=== PATIENT | male | born 1970 | race Hispanic/Latino ===

== ENCOUNTER 2016-05-25 16:22 | Emergency (ER) | payer SELFPAY ==
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
[2016-05-25 18:00] LABS: Basophils % (Auto) 1.2 % (0.0-1.8); Eosinophils % (Auto) 4.2 % (0.0-4.3); Hematocrit 43.8 % (35.5-45.6); Hemoglobin 14.5 gm/dl (11.8-15.2); Mean Corpuscular HGB Conc 33 % (32-34); Mean Corpuscular Hemoglobin 32 pg (28-32); Mean Corpuscular Volume 96 fl (84-94); Platelet Count 219 K/mm3 (140-440); Red Blood Count 4.56 M/mm3 (3.65-5.03); Red Cell Distribution Width 13.9 % (13.2-15.2); White Blood Count 9.8 K/mm3 (4.5-11.0)
[2016-05-25 18:12] LABS: Anion Gap 14 mmol/L; BUN/Creatinine Ratio 15.55; Blood Urea Nitrogen 14 mg/dL (9-20); Calcium 8.9 mg/dL (8.4-10.2); Carbon Dioxide 28 mmol/L (22-30); Chloride 98.5 mmol/L (98-107); Creatine Kinase 152 units/L (55-170); Glucose 102 mg/dL (75-100); Potassium 4.7 mmol/L (3.6-5.0); Sodium 136 mmol/L (137-145)
[2016-05-25] MEDS ORDERED: MORPHINE IV ONE (20:07)
[2016-05-25] MEDS ORDERED: ZOFRAN IV ONE (20:07)
--- NOTE | 2016-05-25 20:15 | Emergency Department Report ---
HPI - General Chief Complaint: Back Pain/Injury Time Seen by Provider: 05/25/16 19:54 - HPI HPI: Room 18 The patient is a 46-year-old male presenting with a chief complaint of chest and head pain after blunt trauma. Patient states 05/22/2016 while working on a car junior slipped the car fell on him striking his head right chest. Patient states he went to [facility] where he had a head CT performed and a chest x-ray which were both reportedly negative. The patient states he was discharged home with Tylenol. Patient states the pain is persistent mostly in the right chest. Patient admits to occasional shortness of breath but denies fever, nausea or vomiting. The patient gives his pain a score of 11/10 Location: Head, chest Duration: Constant since 05/22/2016 Quality: Pain Severity: 10 Modifying factors: [see above] Context: [see above] Mode of transportation: [not driving] ED Past Medical Hx - Past Medical History Hx Hypertension: Yes Hx Arthritis: Yes (rt knee) Hx COPD: Yes (no home O2) - Surgical History Additional Surgical History: Right lower extremity vascular surgery - Family History Family history: no significant - Social History Smoking Status: Current Every Day Smoker (one pack per day) Substance Use Type: Alcohol (rarely), Marijuana - Medications Home Medications: Home Medications Medication Instructions Recorded Confirmed Last Taken Type Lisinopril [Zestril TAB] 20 mg PO DAILY 01/12/13 07/28/13 07/28/13 06:30 History Cyclobenzaprine [Flexeril] 10 mg PO TID PRN #20 tablet 05/25/16 Unknown Rx Ibuprofen [Motrin 800 MG tab] 800 mg PO Q8HR PRN #20 tablet 05/25/16 Unknown Rx oxyCODONE /ACETAMINOPHEN [Percocet 1 - 2 tab PO Q6HR PRN #30 tablet 05/25/16 Unknown Rx 5/325] ED Review of Systems ROS: Stated complaint: CAR FELL ON TOP OF HIM Other details as noted in HPI Comment: All other systems reviewed and negative Constitutional: denies: chills, fever Eyes: denies: eye pain, eye discharge, vision change ENT: denies: ear pain, throat pain Respiratory: shortness of breath. denies: cough, wheezing Cardiovascular: denies: palpitations Endocrine: no symptoms reported Gastrointestinal: denies: abdominal pain, nausea, diarrhea Genitourinary: denies: urgency, dysuria Musculoskeletal: arthralgia, myalgia Skin: other (facial abrasions). denies: rash, lesions Neurological: headache Psychiatric: denies: anxiety, depression Hematological/Lymphatic: denies: easy bleeding, easy bruising Physical Exam - Physical Exam Vital Signs: Vital Signs 05/25/16 05/25/16 16:43 19:45 Temperature 97.8 F 97.8 F Pulse Rate 78 68 Respiratory 20 18 Rate Blood Pressure 191/121 Blood Pressure 166/106 [Right] O2 Sat by Pulse 98 99 Oximetry Physical Exam: GENERAL: The patient is well-developed well-nourished male lying on stretcher appearing to be in mild discomfort. [] HEENT: Normocephalic. Abrasions to the left forehead. Extraocular motions are intact. Patient has moist mucous membranes. NECK: Supple. Trachea midline CHEST/LUNGS: Clear to auscultation. There is no respiratory distress noted. HEART/CARDIOVASCULAR: Regular. There is no tachycardia. There is no gallop rub or murmur. ABDOMEN: Abdomen is soft, nontender. Patient has normal bowel sounds. There is no abdominal distention. SKIN: There is no rash. There is no edema. There is no diaphoresis. NEURO: The patient is awake, alert, and oriented. The patient is cooperative. The patient has normal speech MUSCULOSKELETAL: There is no crepitus. There is no limitation range of motion. ED Course Vital Signs 05/25/16 05/25/16 16:43 19:45 Temperature 97.8 F 97.8 F Pulse Rate 78 68 Respiratory 20 18 Rate Blood Pressure 191/121 Blood Pressure 166/106 [Right] O2 Sat by Pulse 98 99 Oximetry - Consultations Consultation #1: 05/25/16 20:17 With physician from outside hospital ([place]) states patient received a CT head and CT facial bones which did not reveal any acute process as well as plain film chest x-ray which did not reveal any acute findings. Patient was discharged home with Tylenol No. 3 #20 ED Medical Decision Making - Lab Data Result diagrams: 05/25/16 17:37 05/25/16 17:37 Laboratory Tests 05/25/16 05/25/16 17:37 17:37 WBC 9.8 RBC 4.56 Hgb 14.5 Hct 43.8 MCV 96 H MCH 32 MCHC 33 RDW 13.9 Plt Count 219 Lymph % (Auto) 23.2 [place] % (Auto) 7.6 H Eos % (Auto) 4.2 Baso % (Auto) 1.2 Lymph # 2.3 [place] # 0.7 Eos # 0.4 Baso # 0.1 Seg Neutrophils % 63.8 Seg Neutrophils # 6.2 Sodium 136 L Potassium 4.7 Chloride 98.5 Carbon Dioxide 28 Anion Gap 14 BUN 14 Creatinine 0.9 Estimated GFR > 60 BUN/Creatinine Ratio 15.55 Glucose 102 H Calcium 8.9 Total Creatine Kinase 152 Troponin T < 0.010 - Radiology Data Radiology results: report reviewed (CT head, CT chest), image reviewed (chest x- ray, CT head, CT chest) interpreted by me: Chest x-ray-no focal infiltrates, no pneumothorax CT chest (read by radiologist) sees-no evidence for vascular abnormality. There is no evidence for aortic dissection, aortic tear or mediastinal hematoma. Acute fractures of the lateral right fourth through sixth ribs. Lungs demonstrate underlying emphysema but no evidence for pneumothorax or parenchymal contusion CT head (read by radiologist)-negative CT of the head. No acute intracranial process noted - Differential Diagnosis ICH, pneumothorax, rib fracture, mediastinal injury Critical care attestation.: If time is entered above; I have spent that time in minutes in the direct care of this critically ill patient, excluding procedure time. ED Disposition Clinical Impression: Multiple fractures of ribs, right side, sequela, Right-sided chest pain Disposition: DISCHARGED TO HOME OR SELFCARE Is pt being admited?: No Does the pt Need Aspirin: No Condition: Stable Instructions: Chest Pain (ED), Rib Fracture (ED), How to Use an Incentive Spirometer (ED) Additional Instructions: Return to the emergency department immediately should you develop worsening symptoms, fever, inability to tolerate food or liquid or any other concerns. Prescriptions: Cyclobenzaprine [Flexeril] 10 mg PO TID PRN #20 tablet PRN Reason: Muscle Spasm Ibuprofen [Motrin 800 MG tab] 800 mg PO Q8HR PRN #20 tablet PRN Reason: Pain oxyCODONE /ACETAMINOPHEN [Percocet 5/325] 1 - 2 tab PO Q6HR PRN #30 tablet PRN Reason: Pain Referrals: ERIC WORTHINGTON MD [Primary Care Provider] - 3-5 Days ZENON HELMS JR, MD [Staff Physician] - 3-5 Days (Dr. Helms is a primary physician. Please follow up with him if you do not already have a primary physician) ROYER PIZANO MD [Staff Physician] - 3-5 Days (Dr. Pizano is an orthopedic surgeon. Please follow up with him for further evaluation) Time of Disposition: 22:15
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
[2016-05-25] MEDS ORDERED: SUBLIMAZE IV ONE (22:09)
[2016-05-25 22:45] VITALS: BP 179/107
[2016-05-25] MEDS ORDERED: CATAPRES ONE (22:45)
[2016-05-25] MEDS ORDERED: CATAPRES PO ONE (22:46)
--- NOTE | 2016-05-26 07:37 | XRay Report ---
ROUTINE CHEST, TWO VIEWS: HISTORY: Chest pain, abnormal breath sounds. Mild hyperinflation is evident. The lungs are clear. Heart and mediastinal structures are unremarkable. No thoracic fractures are appreciated on x-ray. Mild facet spondylosis is noted. IMPRESSION: Mild hyperinflation. No acute process appreciated.
== END 2016-05-25 23:03 | disposition home or self-care (01) ==
LOC: ED 16:22
DX: S22.41XS Multiple fractures of ribs, right side, sequela (principal); I10 Essential (primary) hypertension; J44.9 Chronic obstructive pulmonary disease, unspecified; W20.8XXS Other cause of strike by thrown, projected or falling object, sequela
CPT/HCPCS: 36415; 70450; 71020; 71275; 80048; 82550; 84484; 85025; 93005; 93010; 96374; 96375; 99284; J2270; J2405; J3010; Q9967

== ENCOUNTER 2016-07-10 11:47 | Inpatient (IN) | payer OTHER ==
[2016-07-10 13:32] LABS: Basophils % (Auto) 0.9 % (0.0-1.8); Eosinophils % (Auto) 2.2 % (0.0-4.3); Hematocrit 31.7 % (35.5-45.6); Hemoglobin 10.5 gm/dl (11.8-15.2); Mean Corpuscular HGB Conc 33 % (32-34); Mean Corpuscular Hemoglobin 31 pg (28-32); Mean Corpuscular Volume 93 fl (84-94); Platelet Count 578 K/mm3 (140-440); Red Blood Count 3.43 M/mm3 (3.65-5.03); Red Cell Distribution Width 13.6 % (13.2-15.2); White Blood Count 14.1 K/mm3 (4.5-11.0)
[2016-07-10 13:42] LABS: INR 3.08 (0.87-1.13)
[2016-07-10 13:45] LABS: Albumin/Globulin Ratio 0.8 %; BUN/Creatinine Ratio 24.7; Bilirubin,Total 0.3 mg/dL (0.1-1.2); Calcium 8.7 mg/dL (8.4-10.2); Chloride 94.2 mmol/L (98-107); Potassium 4.6 mmol/L (3.6-5.0); Total Protein 6.6 g/dL (6.3-8.2)
[2016-07-10] MEDS ORDERED: NACL 0.9% 1000 ML 1,000 ML IV ONE (19:11)
--- NOTE | 2016-07-10 19:22 | Emergency Department Report ---
HPI - General Chief Complaint: Wound/Laceration Time Seen by Provider: 07/10/16 18:37 - HPI HPI: This is a 46-year-old male presents to the emergency department with complaint of increased pain and swelling to the right lower extremity. The patient was recently at [facility], admitted for 13 days, after he had a large right lower extremity DVT with ischemia, compartment syndrome and eventually a fasciotomy. The patient has a wound VAC on but the VAC has stopped working since this morning. The patient was supposed to go to the wound Center clinic this morning but was told to come to the emergency department instead. He has seen Dr. Calzada and Dr. Muhammad from vascular surgery. He has always had some intermittent swelling and blistering but this has increased. Patient is on gabapentin and hydrocodone and it is not controlling his pain. They deny any fever, nausea, vomiting, chest pain or shortness of breath. ED Past Medical Hx - Past Medical History Hx Hypertension: Yes Hx Congestive Heart Failure: No Hx Diabetes: No Hx Renal Disease: Yes (renal insuf) Hx Arthritis: Yes (rt knee) Hx Kidney Stones: Yes Hx Asthma: No Hx COPD: Yes (no home O2) Hx HIV: No Additional medical history: PAD. sleep apnea - Surgical History Additional Surgical History: Right lower extremity vascular surgery 2013 stents , 06/27/2016 RLL narcotic tissue with with current wound vac - Social History Smoking Status: Former Smoker Substance Use Type: Marijuana - Medications Home Medications: Home Medications Medication Instructions Recorded Confirmed Last Taken Type Cyclobenzaprine [Flexeril 10 MG 10 mg PO TID PRN #30 tablet 07/08/16 07/10/16 Unknown Rx TAB] Gabapentin [Neurontin] 300 mg PO Q8HR #90 capsule 07/08/16 07/10/16 Unknown Rx HYDROcodone/APAP 5-325 [[place] 2 each PO Q4H PRN #20 tablet 07/08/16 07/10/16 Unknown Rx 5-325 mg TAB] Lisinopril [Zestril TAB] 20 mg PO DAILY #30 tablet 07/08/16 07/10/16 Unknown Rx Nicotine [Habitrol] 21 mg TD QDAY #7 patch 07/08/16 07/10/16 Unknown Rx Rivaroxaban [Xarelto] 15 mg PO BID #30 tablet 07/08/16 07/10/16 Unknown Rx amLODIPine [Norvasc] 5 mg PO DAILY #30 tablet 07/08/16 07/10/16 Unknown Rx cloNIDine [Catapres] 0.2 mg PO Q12H #60 tablet 07/08/16 07/10/16 Unknown Rx ED Review of Systems ROS: Stated complaint: PRE SURGERY/ RT LEG SWELLING Other details as noted in HPI Comment: All other systems reviewed and negative Constitutional: denies: chills, fever Eyes: denies: eye pain, eye discharge, vision change ENT: denies: ear pain, throat pain Respiratory: denies: cough, shortness of breath, wheezing Cardiovascular: edema. denies: chest pain, palpitations Gastrointestinal: denies: abdominal pain, nausea, diarrhea Genitourinary: denies: urgency, dysuria Musculoskeletal: arthralgia, myalgia Skin: lesions. denies: pruritus Neurological: denies: headache, weakness, paresthesias Physical Exam - Physical Exam Vital Signs: Vital Signs 07/10/16 12:16 Temperature 98.3 F Pulse Rate 112 H Respiratory 16 Rate Blood Pressure 93/61 O2 Sat by Pulse 97 Oximetry Physical Exam: GENERAL: The patient is well-developed well-nourished. HEENT: Normocephalic. Atraumatic. Extraocular motions are intact. Patient has moist mucous membranes. Pupils equal reactive to light bilaterally. NECK: Supple. Trachea is midline. CHEST/LUNGS: Clear to auscultation. There is no respiratory distress noted. HEART/CARDIOVASCULAR: Regular. There is no tachycardia. There is no gallop rub or murmur. ABDOMEN: Abdomen is soft, nontender. Patient has normal bowel sounds. There is no abdominal distention. SKIN: Nonpitting swelling to the right lower extremity from the ankle and foot. There are some blisters seen to the dorsum, medial side and to the plantar ball of the foot. There are too long wounds to the right lower extremity, to both the medial and lateral portion of the tib-fib region consistent with his previous fasciotomy. There is a wound VAC covering these areas. NEURO: The patient is awake, alert, and oriented. The patient is cooperative. The patient has normal speech. MUSCULOSKELETAL: There is tenderness to palpation to the right lower extremity over the tib-fib region where the patient has fasciotomy wounds as well as tenderness palpation to the right foot which is currently swollen. It is hard to palpate the pedal pulses secondary to swelling. Cap refill less than 3 seconds. ED Course Vital Signs 07/10/16 12:16 Temperature 98.3 F Pulse Rate 112 H Respiratory 16 Rate Blood Pressure 93/61 O2 Sat by Pulse 97 Oximetry - Consultations Consultation #1: I spoke with Dr. Sotelo regarding this patient's previous visits and his presentation tonight. He did not feel that there was any immediate vascular intervention necessary in the emergency department. He has agreed for the vascular service to consult on this patient and suggests wound care consultation as well. 07/11/16 01:15 ED Medical Decision Making - Lab Data Result diagrams: 07/10/16 13:07 07/10/16 13:07 - Medical Decision Making This is a 46-year-old male who was previously here for an arterial occlusion, stent placement and compartment syndrome with subsequent fasciotomy. Patient comes in today because he has increased leg pain and swelling and the wound VAC has stopped working. Family says that they called the vascular service and were told to come in to the emergency department. Patient's labs show a leukocytosis, elevated INR and some acidosis on venous pH. Patient is groggy but arousable and alert. He has 2 large open wounds to the right lower extremity. There is nonpitting swelling to the foot and ankle with some blistering seen. From these reasons I believe the patient should be admitted and be reevaluated by the wound care service and the vascular service. He also will be given pain control. Blood cultures have been sent and the patient was covered with 1 g of vancomycin. Patient except for admission by the hospitalist. Critical Care Time: No Critical care attestation.: If time is entered above; I have spent that time in minutes in the direct care of this critically ill patient, excluding procedure time. ED Disposition Clinical Impression: Post-op pain, Encounter for management of vacuum-assisted closure (VAC) of wound, Right leg pain, Right leg swelling Open wound of leg Qualifiers: Encounter type: subsequent encounter Laterality: right Qualified Code(s): S81.801D - Unspecified open wound, right lower leg, subsequent encounter Disposition: OP ADMITTED IP TO THIS HOSP Is pt being admited?: Yes Condition: Stable Time of Disposition: 00:05
[2016-07-10] MEDS ORDERED: VANCOMYCIN/NS 1 GM/250 ML 1 GM/250 ML BAG IV ONE (21:23)
[2016-07-10] MEDS ORDERED: NORCO 5/325 PO PRN (22:31)
[2016-07-10] MEDS ORDERED: ZOFRAN IV PRN (22:33)
[2016-07-10] MEDS ORDERED: DULCOLAX PR PRN (22:33)
[2016-07-10] MEDS ORDERED: TYLENOL PO PRN (22:33)
[2016-07-10] MEDS ORDERED: MILK OF MAGNESIA PO PRN (22:33)
[2016-07-10] MEDS ORDERED: APRESOLINE IV PRN (22:33)
--- NOTE | 2016-07-10 22:39 | History and Physical Report ---
History of Present Illness Date of examination: 07/10/16 History of present illness: 46-year-old man with a history of peripheral vascular disease, hypertension, COPD, sleep apnea was discharged from the hospital 2 days ago return to the emergency room because state that his pain is uncontrolled, he is also hallucinating. She stated that she is not is streaks of redness distal to the bandage on the right leg, no fever or chills. Review of system is unobtainable from the patient, he is lethargic Patient was admitted and discharged 2 days ago for ischemia of the right leg where he underwent fasciotomy after developing compartment syndrome. He is also status post right profunda artery thrombectomy PAST SURGICAL HISTORY: As discussed above SOCIAL HISTORY: Smoke, no alcohol or drugs FAMILY HISTORY: Hypertension Medications and Allergies Allergies Allergy/AdvReac Type Severity Reaction Status Date / Time No Known Allergies Allergy Unverified 01/12/13 12:24 Home Medications Medication Instructions Recorded Confirmed Last Taken Type Cyclobenzaprine [Flexeril 10 MG 10 mg PO TID PRN #30 tablet 07/08/16 07/10/16 Unknown Rx TAB] Gabapentin [Neurontin] 300 mg PO Q8HR #90 capsule 07/08/16 07/10/16 Unknown Rx HYDROcodone/APAP 5-325 [[place] 2 each PO Q4H PRN #20 tablet 07/08/16 07/10/16 Unknown Rx 5-325 mg TAB] Lisinopril [Zestril TAB] 20 mg PO DAILY #30 tablet 07/08/16 07/10/16 Unknown Rx Nicotine [Habitrol] 21 mg TD QDAY #7 patch 07/08/16 07/10/16 Unknown Rx Rivaroxaban [Xarelto] 15 mg PO BID #30 tablet 07/08/16 07/10/16 Unknown Rx amLODIPine [Norvasc] 5 mg PO DAILY #30 tablet 07/08/16 07/10/16 Unknown Rx cloNIDine [Catapres] 0.2 mg PO Q12H #60 tablet 07/08/16 07/10/16 Unknown Rx Cephalexin [Keflex] 500 mg PO Q12HR #10 cap 07/14/16 Unknown Rx oxyCODONE /ACETAMINOPHEN [Percocet 1 tab PO Q6H PRN #30 tablet 07/14/16 Unknown Rx 5/325 mg] Active Meds: Active Medications Acetaminophen/Hydrocodone Bitart ([place] 5/325) 2 each PO Q4H PRN PRN Reason: Pain, Moderate (4-6) Amlodipine Besylate (Norvasc) 5 mg PO DAILY DAGMAR Clonidine HCl (Catapres) 0.2 mg PO Q12HR DAGMAR Hydralazine HCl (Apresoline) 5 mg IV Q6HR PRN PRN Reason: Hypertension Vancomycin HCl (Vancomycin/Ns 1 Gm/250 Ml) 1 gm in 250 mls @ 167.007 mls/hr IV ONCE ONE PRN Reason: Protocol Stop: 07/10/16 22:52 Lisinopril (Zestril) 20 mg PO DAILY DAGMAR Nicotine (Habitrol) 21 mg TD QDAY DAGMAR Exam - Physical Exam Narrative exam: Gen. appearance: Patient lying in bed, no apparent distress HEENT: Normocephalic, atraumatic, pupils equally round and reactive to light, extraocular movement intact, and no sclericterus,. No JVD or thyromegaly or nodule,neck supple, no carotid bruit ,mucous membranes moist, no exudate or erythema Heart: S1, S2, regular rate and rhythm Lungs: Clear to auscultation bilaterally, breathing comfortable Abdomen: Positive bowel sounds, nontender, nondistended, no organomegaly Extremity: Right leg bandage and in wound VAC, mild erythema of distal leg, swollen,+ pulses, no cyanosis, clubbing Skin: No rash, nodules, warm, dry Neuro: lethargic but arousable - Constitutional Vitals: Temp Pulse Resp BP Pulse Ox 98.3 F 104 H 17 115/75 97 07/10/16 19:15 07/10/16 22:00 07/10/16 22:00 07/10/16 22:00 07/10/16 22:00 Results - Labs CBC & Chem 7: 07/12/16 08:54 07/13/16 05:36 Labs: Abnormal lab results 07/10/16 07/10/16 07/10/16 Range/Units 13:07 13:07 13:07 WBC 14.1 H (4.5-11.0) K/mm3 RBC 3.43 L (3.65-5.03) M/mm3 Hgb 10.5 L (11.8-15.2) gm/dl Hct 31.7 L (35.5-45.6) % Plt Count 578 H (140-440) K/mm3 [place] % (Auto) 8.8 H (0.0-7.3) % [place] # 1.2 H (0.0-0.8) K/mm3 Seg Neutrophils % 70.4 H (40.0-70.0) % Seg Neutrophils # 9.9 H (1.8-7.7) K/mm3 PT 32.0 H (12.2-14.9) Sec. INR 3.08 H (0.87-1.13) VBG pH (7.320-7.420) Sodium 133 L (137-145) mmol/L Chloride 94.2 L (98-107) mmol/L BUN 42 H (9-20) mg/dL Creatinine 1.7 H (0.8-1.5) mg/dL Glucose 140 H (75-100) mg/dL Albumin 3.0 L (3.9-5) g/dL 07/10/16 Range/Units 13:07 WBC (4.5-11.0) K/mm3 RBC (3.65-5.03) M/mm3 Hgb (11.8-15.2) gm/dl Hct (35.5-45.6) % Plt Count (140-440) K/mm3 [place] % (Auto) (0.0-7.3) % [place] # (0.0-0.8) K/mm3 Seg Neutrophils % (40.0-70.0) % Seg Neutrophils # (1.8-7.7) K/mm3 PT (12.2-14.9) Sec. INR (0.87-1.13) VBG pH 7.314 L (7.320-7.420) Sodium (137-145) mmol/L Chloride (98-107) mmol/L BUN (9-20) mg/dL Creatinine (0.8-1.5) mg/dL Glucose (75-100) mg/dL Albumin (3.9-5) g/dL Assessment and Plan Acute renal failure Possible wound infection Peripheral vascular disease Recent fasciotomy for right leg ischemia Elevated INR Hypertension Sleep apnea Admits medicine Start IV fluid, IV vancomycin Obtain blood culture, repeat PT/INR Consult vascular Continue appropriate outpatient medication
[2016-07-10] MEDS ORDERED: VANCOMYCIN/NS 1 GM/250 ML 0 GM/0 ML BAG IV ONE (22:51)
[2016-07-10] MEDS ORDERED: VANCOMYCIN/NS 1 GM/250 ML 1 GM/250 ML BAG IV SCH (23:00)
[2016-07-10] MEDS ORDERED: VANCOMYCIN VIAL 2,000 MG in NACL 0.9% 500 ML 500 ML IV ONE (23:00)
[2016-07-11] MEDS: NACL 0.9% 1000 ML 1,000 ML IV SCH ×3 (00:28→21:49)
[2016-07-11] MEDS: CATAPRES PO SCH ×3 (00:29→21:45)
[2016-07-11 00:36] LABS: INR 2.21 (0.87-1.13)
[2016-07-11 00:37] LABS: Partial Thromboplastin Time 53.3 Sec. (24.2-36.6)
[2016-07-11 03:29] LABS: Basophils % (Auto) 0.7 % (0.0-1.8); Eosinophils % (Auto) 1.8 % (0.0-4.3); Hematocrit 28.8 % (35.5-45.6); Hemoglobin 9.5 gm/dl (11.8-15.2); Mean Corpuscular HGB Conc 33 % (32-34); Mean Corpuscular Hemoglobin 30 pg (28-32); Mean Corpuscular Volume 93 fl (84-94); Platelet Count 480 K/mm3 (140-440); Red Blood Count 3.11 M/mm3 (3.65-5.03)
[2016-07-11 03:39] LABS: Anion Gap 16 mmol/L; BUN/Creatinine Ratio 33.63; Blood Urea Nitrogen 37 mg/dL (9-20); Calcium 8.2 mg/dL (8.4-10.2); Carbon Dioxide 23 mmol/L (22-30); Chloride 96.1 mmol/L (98-107); Glucose 106 mg/dL (75-100); Potassium 4.5 mmol/L (3.6-5.0); Sodium 131 mmol/L (137-145)
[2016-07-11] MEDS ORDERED: OxyCONTIN PO ONE (06:24)
[2016-07-11] MEDS: OxyCONTIN PO SCH ×2 (06:31→21:47)
--- NOTE | 2016-07-11 08:15 | Admit Criteria Form ---
Admission Criteria Documentation: WOUND COMPLICATIONS Clinical Indications for Inpatient Care (Place 'X' for any and all applicable criteria): Ongoing inpatient care may be indicated for wound complications with ANY ONE of the following (1) (15): [ ]I. Infection with ANY ONE of the following(32)(33): [ ]a) Temperature greater than 38.5 C (101.3 F) [ ]b) Evidence of tissue necrosis [ ]c) Erythema diameter expanding around wound despite treatment [ ]d) Mental status changes [ ]e) Dehydration [ ]f) Bacteremia [ ]g) Hemodynamic instability [ ]h) Suspected necrotizing fasciitis [ ]i) Rapidly spreading lesions [ ]j) High-risk location (eg, perineum, sternum, orbit) [ ]k) High-risk coexisting clinical condition as indicated by ANY ONE of the following: [ ]i) Poorly controlled diabetes [ ]ii) Cirrhosis [ ]iii) Renal failure [ ]iv) Neutropenia [ ] v) Asplenia [ ]vi) Immunosuppression (eg, AIDS, chronic corticosteroid use) [ ]viii) Other high-risk medical comorbidities [ ] II. Dehiscence requiring frequent monitoring or immediate treatment [ ] III. Hematoma with ANY ONE of the following: [ ]a) Hemodynamic instability or acute anemia due to rapid development of hematoma [ ]b) Neck hematoma causing airway compression [ ]c) Retroperitoneal hematoma [ ]d) Uncontrolled coagulopathy [ ]IV. Seroma with evidence of secondary infection and requirement for IV antibiotics [D](31) [ X]V. Pain that cannot be managed at lower level of care Extended stay beyond goal length of stay for primary condition may be needed until ALL of the following are present(1)(33)(34): [ ]a) Afebrile or fever resolving [ ]b) Hemodynamic stability [ ]c) Pain resolving [ ]d) Wound closed, continuity adequately restored, or wound manageable at lower level of care [ ]e) No drain needed or drain care manageable at lower level of care [ ]f) Wound hematoma or seroma resolving [ ]g) Antibiotics not needed or regimen manageable at lower level of care(38) [ ]h) Dressing care manageable at lower level of care [ ]i) Coagulopathy absent, resolved, or treatable at lower level of care [ ]j) Medical comorbidities resolved or treatable at lower level of care The original [facility] [employer] content created by Millimawillis Guerre[employer] has been revised. The portions of the content which have been revised are identified through the use of italic text or in bold, and Ganesh Guerrero has neither reviewed nor approved the modified material. All other unmodified content is copyright [facility]. Please see references footnoted in the original [facility] [employer] edition 2016 Admission Criteria Met: Yes
[2016-07-11] MEDS: ZESTRIL PO SCH (11:00)
[2016-07-11] MEDS: HABITROL TD SCH (11:00)
[2016-07-11] MEDS: NORVASC PO SCH (11:00)
[2016-07-11] MEDS: PERCOCET 5/325 PO PRN (13:13)
[2016-07-11] MEDS: VANCOMYCIN VIAL 1,500 MG in NACL 0.9% 500 ML 500 ML IV SCH (13:17)
[2016-07-11] MEDS ORDERED: NACL 0.9% IR PRN (15:45)
[2016-07-11] MEDS ORDERED: ASTRAMORPH PF IV ONE (15:53)
[2016-07-11] MEDS ORDERED: MORPHINE IV ONE (16:00)
--- NOTE | 2016-07-11 16:06 | Progress Note ---
Assessment and Plan Assessment and plan: Acute renal failure, resolved Possible wound infection Peripheral vascular disease Recent fasciotomy for right leg ischemia Hypertension, benign Sleep apnea Plan: cont IV fluid, IV vancomycin follow blood culture, repeat PT/INR Consulted vascular, will follow recommendation Continue appropriate outpatient medication place on dvt px History Interval history: Patient seen and examined. Medical records and medication list reviewed. No acute event overnight noted by the RN. Patient denies any chest pain or difficulty breathing. Patient is tolerating diet. c/o rt LE pain. Pt is s/p a percutaneous revascularization during his recent hospitalization. He subsequently developed a compartment syndrome and required a fasciotomy. Wound vacs were placed and the pt was d/c home. His wound vac apparently malfunctioned yesterday and the device was removed, but the sponges were left in placed. Hospitalist Physical - Physical exam Narrative exam: GENERAL: well-developed and well-nourished WM lying on bed appeared to be in no discomfort. HEENT: Normocephalic. Atraumatic. No conjunctival congestion or icterus. Patient has moist mucous membranes. NECK: Supple. Trachea midline. CHEST/LUNGS: Clear to auscultated bilaterally, breathing nonlabored. No wheezes crackles or rhonchi. HEART/CARDIOVASCULAR: Regular in rate and rhythm. S1 and S2 positive. ABDOMEN: Abdomen is soft, nontender. Patient has normal bowel sounds. SKIN: There is no rash. Warm and dry. NEURO: No focal motor deficit. Follows command. EXTRIMITY: Right lower extremity covered with wound dressing. PSYCH: Cooperative. - Constitutional Vitals: Temp Pulse Resp BP Pulse Ox 98.5 F 99 H 30 H 138/78 79 L 07/11/16 12:00 07/11/16 13:00 07/11/16 13:00 07/11/16 13:00 07/11/16 13:00 Results - Labs CBC & Chem 7: 07/11/16 03:04 07/11/16 03:04 Labs: Laboratory Last Values WBC 13.0 K/mm3 (4.5-11.0) H 07/11/16 03:04 RBC 3.11 M/mm3 (3.65-5.03) L 07/11/16 03:04 Hgb 9.5 gm/dl (11.8-15.2) L 07/11/16 03:04 Hct 28.8 % (35.5-45.6) L 07/11/16 03:04 MCV 93 fl (84-94) 07/11/16 03:04 MCH 30 pg (28-32) 07/11/16 03:04 MCHC 33 % (32-34) 07/11/16 03:04 RDW 14.0 % (13.2-15.2) 07/11/16 03:04 Plt Count 480 K/mm3 (140-440) H 07/11/16 03:04 Lymph % (Auto) 18.0 % (13.4-35.0) 07/11/16 03:04 [place] % (Auto) 8.7 % (0.0-7.3) H 07/11/16 03:04 Eos % (Auto) 1.8 % (0.0-4.3) 07/11/16 03:04 Baso % (Auto) 0.7 % (0.0-1.8) 07/11/16 03:04 Lymph # 2.3 K/mm3 (1.2-5.4) 07/11/16 03:04 [place] # 1.1 K/mm3 (0.0-0.8) H 07/11/16 03:04 Eos # 0.2 K/mm3 (0.0-0.4) 07/11/16 03:04 Baso # 0.1 K/mm3 (0.0-0.1) 07/11/16 03:04 Seg Neutrophils % 70.8 % (40.0-70.0) H 07/11/16 03:04 Seg Neutrophils # 9.2 K/mm3 (1.8-7.7) H 07/11/16 03:04 PT 24.6 Sec. (12.2-14.9) H 07/11/16 00:15 INR 2.21 (0.87-1.13) H 07/11/16 00:15 APTT 53.3 Sec. (24.2-36.6) H 07/11/16 00:15 VBG pH 7.314 (7.320-7.420) L 07/10/16 13:07 Sodium 131 mmol/L (137-145) L 07/11/16 03:04 Potassium 4.5 mmol/L (3.6-5.0) 07/11/16 03:04 Chloride 96.1 mmol/L (98-107) L 07/11/16 03:04 Carbon Dioxide 23 mmol/L (22-30) 07/11/16 03:04 Anion Gap 16 mmol/L 07/11/16 03:04 BUN 37 mg/dL (9-20) H 07/11/16 03:04 Creatinine 1.1 mg/dL (0.8-1.5) 07/11/16 03:04 Estimated GFR > 60 ml/min 07/11/16 03:04 BUN/Creatinine Ratio 33.63 % 07/11/16 03:04 Glucose 106 mg/dL (75-100) H 07/11/16 03:04 Lactic Acid 1.3 mmol/L (0.7-2.0) 07/10/16 16:51 Calcium 8.2 mg/dL (8.4-10.2) L 07/11/16 03:04 Total Bilirubin 0.3 mg/dL (0.1-1.2) 07/10/16 13:07 AST 35 units/L (5-40) 07/10/16 13:07 ALT 50 units/L (7-56) 07/10/16 13:07 Alkaline Phosphatase 104 units/L (35-129) 07/10/16 13:07 Total Protein 6.6 g/dL (6.3-8.2) 07/10/16 13:07 Albumin 3.0 g/dL (3.9-5) L 07/10/16 13:07 Albumin/Globulin Ratio 0.8 % 07/10/16 13:07
[2016-07-11] MEDS ORDERED: PERCOCET 5/325 PO ONE (16:36)
--- NOTE | 2016-07-11 17:07 | Event Note ---
Date: 07/11/16 Pt is s/p a percutaneous revascularization with his recent hospitalization. He subsequently developed a compartment syndrome and was taken for a fasciotomy. Wound vacs were placed and the pt was d/c home. He developed uncontrolled pain while at home. He presented to the emergency room with ARF and has since been admitted to the ICU. His foot is warm and appears adequately perfused. His wound vac apparently malfunctioned yesterday and the device was removed, but the sponges were left in placed. I educated the nurse about sop with regards to malfunctioning wounds. I contacted the ET nurse who has changed his bandages. This patient did not do well with d/c home. Would recommend rehab eval.
[2016-07-12] MEDS: VANCOMYCIN VIAL 1,500 MG in NACL 0.9% 500 ML 500 ML IV SCH ×3 (00:51→22:53)
[2016-07-12] MEDS: PERCOCET 5/325 PO PRN ×5 (00:52→16:48)
[2016-07-12] MEDS: NACL 0.9% 1000 ML 1,000 ML IV SCH ×2 (06:48→15:23)
[2016-07-12 09:46] LABS: Basophils % (Auto) 0.8 % (0.0-1.8); Eosinophils % (Auto) 2.4 % (0.0-4.3); Hematocrit 29.1 % (35.5-45.6); Hemoglobin 9.7 gm/dl (11.8-15.2); Mean Corpuscular HGB Conc 33 % (32-34); Mean Corpuscular Hemoglobin 31 pg (28-32); Mean Corpuscular Volume 92 fl (84-94); Platelet Count 457 K/mm3 (140-440); Red Blood Count 3.17 M/mm3 (3.65-5.03); Red Cell Distribution Width 13.7 % (13.2-15.2); White Blood Count 8.4 K/mm3 (4.5-11.0)
[2016-07-12] MEDS: OxyCONTIN PO SCH ×2 (10:00→21:38)
[2016-07-12] MEDS: HABITROL TD SCH (10:17)
[2016-07-12] MEDS: ZESTRIL PO SCH (10:18)
[2016-07-12] MEDS: NORVASC PO SCH (10:18)
[2016-07-12] MEDS: CATAPRES PO SCH ×2 (10:19→21:39)
--- NOTE | 2016-07-12 11:14 | Progress Note ---
Assessment and Plan He was discharged on sterile fashion however it was not restarted in the hospital this admission. I restarted and anticoagulation for this patient. Plan to continue pain control, continue anticoagulation. Out of bed to chair as tolerated. Discharge planning to rehabilitation facility. Subjective Date of service: 07/12/16 Principal diagnosis: right leg pain status post fasciotomy and lysis Interval history: Plan 46-year-old gentleman was recently discharged from [facility] after right leg femoral lysis and fasciotomy. He came in for uncontrolled right leg pain and acute renal failure. He is now was normal creatinine and pain controlled with pain medications. No new concerns or issues. Objective - Constitutional Vitals: Vital Signs - 12hr 07/11/16 07/11/16 07/11/16 23:10 23:15 23:20 Temperature 98.1 F Pulse Rate 93 H 93 H Respiratory 15 18 Rate Blood Pressure 135/73 135/73 O2 Sat by Pulse 96 96 Oximetry 07/11/16 07/11/16 07/11/16 23:30 23:40 23:42 Temperature Pulse Rate 89 89 91 H Respiratory 16 16 18 Rate Blood Pressure 135/73 135/73 135/73 O2 Sat by Pulse 95 96 96 Oximetry 07/11/16 07/12/16 07/12/16 23:50 00:00 00:10 Temperature Pulse Rate 89 87 84 Respiratory 17 18 17 Rate Blood Pressure 135/73 135/73 131/68 O2 Sat by Pulse 96 100 96 Oximetry 07/12/16 07/12/16 07/12/16 00:20 00:30 00:40 Temperature Pulse Rate 87 94 H 86 Respiratory 13 12 17 Rate Blood Pressure 131/68 131/68 131/68 O2 Sat by Pulse 96 97 96 Oximetry 07/12/16 07/12/16 07/12/16 00:50 00:52 01:00 Temperature Pulse Rate 89 89 Respiratory 19 18 17 Rate Blood Pressure 131/68 131/68 O2 Sat by Pulse 96 96 Oximetry 07/12/16 07/12/16 07/12/16 01:10 01:20 01:30 Temperature Pulse Rate 94 H 91 H 87 Respiratory 16 17 17 Rate Blood Pressure 131/68 131/68 131/68 O2 Sat by Pulse 96 96 97 Oximetry 07/12/16 07/12/16 07/12/16 01:40 01:50 01:52 Temperature Pulse Rate 86 85 Respiratory 17 16 18 Rate Blood Pressure 131/68 131/68 O2 Sat by Pulse 95 96 Oximetry 07/12/16 07/12/16 07/12/16 02:00 02:05 02:10 Temperature Pulse Rate 86 81 81 Respiratory 15 15 Rate Blood Pressure 131/68 131/68 O2 Sat by Pulse 96 100 97 Oximetry 07/12/16 07/12/16 07/12/16 02:20 02:30 02:40 Temperature Pulse Rate 84 82 81 Respiratory 15 15 14 Rate Blood Pressure 131/68 131/68 131/68 O2 Sat by Pulse 96 97 97 Oximetry 07/12/16 07/12/16 07/12/16 02:50 03:00 03:10 Temperature Pulse Rate 79 78 79 Respiratory 12 14 15 Rate Blood Pressure 131/68 131/68 131/68 O2 Sat by Pulse 96 97 96 Oximetry 07/12/16 07/12/16 07/12/16 03:20 03:30 03:40 Temperature Pulse Rate 86 76 80 Respiratory 11 L 12 15 Rate Blood Pressure 131/68 131/68 131/68 O2 Sat by Pulse 97 96 97 Oximetry 07/12/16 07/12/16 07/12/16 03:50 04:00 04:10 Temperature Pulse Rate 79 83 82 Respiratory 17 16 17 Rate Blood Pressure 131/68 131/68 125/78 O2 Sat by Pulse 97 98 97 Oximetry 07/12/16 07/12/16 07/12/16 04:20 04:23 04:30 Temperature 98.2 F Pulse Rate 81 82 Respiratory 19 16 19 Rate Blood Pressure 125/78 125/78 O2 Sat by Pulse 97 97 Oximetry 07/12/16 07/12/16 07/12/16 04:40 04:50 05:00 Temperature Pulse Rate 82 77 77 Respiratory 16 16 15 Rate Blood Pressure 125/78 125/78 125/78 O2 Sat by Pulse 97 96 96 Oximetry 07/12/16 07/12/16 07/12/16 05:10 05:20 05:23 Temperature Pulse Rate 79 79 Respiratory 15 13 18 Rate Blood Pressure 125/78 125/78 O2 Sat by Pulse 97 97 Oximetry 07/12/16 07/12/16 07/12/16 05:30 05:35 05:40 Temperature Pulse Rate 75 76 Respiratory 12 18 14 Rate Blood Pressure 125/78 125/78 O2 Sat by Pulse 97 98 96 Oximetry 07/12/16 07/12/16 07/12/16 05:50 06:00 06:10 Temperature Pulse Rate 82 78 83 Respiratory 15 18 14 Rate Blood Pressure 125/78 125/78 125/78 O2 Sat by Pulse 95 84 96 Oximetry 07/12/16 07/12/16 07/12/16 06:20 06:30 07:48 Temperature 98.0 F Pulse Rate 79 82 Respiratory 16 16 Rate Blood Pressure 125/78 125/78 O2 Sat by Pulse 96 96 Oximetry 07/12/16 07/12/16 07/12/16 08:52 10:18 10:19 Temperature Pulse Rate 88 88 Respiratory Rate Blood Pressure 121/82 121/82 O2 Sat by Pulse 96 Oximetry - Labs CBC & Chem 7: 07/12/16 08:54 07/11/16 03:04 Labs: Abnormal lab results 07/12/16 Range/Units 08:54 RBC 3.17 L (3.65-5.03) M/mm3 Hgb 9.7 L (11.8-15.2) gm/dl Hct 29.1 L (35.5-45.6) % Plt Count 457 H (140-440) K/mm3 [place] % (Auto) 7.7 H (0.0-7.3) % Seg Neutrophils % 73.7 H (40.0-70.0) %
[2016-07-12] MEDS: LOVENOX SUB-Q SCH ×2 (12:42→21:40)
[2016-07-12] MEDS ORDERED: FLEXERIL PO PRN (16:41)
--- NOTE | 2016-07-12 16:58 | Progress Note ---
Assessment and Plan Assessment and plan: Acute renal failure, resolved Possible wound infection Peripheral vascular disease Recent fasciotomy for right leg ischemia Hypertension, benign Sleep apnea Plan: cont IV fluid, IV vancomycin follow blood culture, repeat PT/INR vascular surgeon following, recommended to continue wound vac CM consulted for rehab on d/c started on anticoagulation Continue appropriate outpatient medication place on dvt px History Interval history: Patient seen and examined. Medical records and medication list reviewed. No acute event overnight noted by the RN. Patient denies any chest pain or difficulty breathing. Patient is tolerating diet. c/o rt LE pain. Pt is s/p a percutaneous revascularization during his recent hospitalization. He subsequently developed a compartment syndrome and required a fasciotomy. Wound vacs were placed and the pt was d/c home. His wound vac apparently malfunctioned yesterday and the device was removed, but the sponges were left in placed. placed back on wound vac Hospitalist Physical - Physical exam Narrative exam: GENERAL: well-developed and well-nourished WM lying on bed appeared to be in no discomfort. HEENT: Normocephalic. Atraumatic. No conjunctival congestion or icterus. Patient has moist mucous membranes. NECK: Supple. Trachea midline. CHEST/LUNGS: Clear to auscultated bilaterally, breathing nonlabored. No wheezes crackles or rhonchi. HEART/CARDIOVASCULAR: Regular in rate and rhythm. S1 and S2 positive. ABDOMEN: Abdomen is soft, nontender. Patient has normal bowel sounds. SKIN: There is no rash. Warm and dry. NEURO: No focal motor deficit. Follows command. EXTRIMITY: Right lower extremity covered with wound dressing and wound vac. PSYCH: Cooperative. - Constitutional Vitals: Temp Pulse Resp BP Pulse Ox 98.6 F 96 H 20 134/84 99 07/12/16 15:55 07/12/16 15:55 07/12/16 16:48 07/12/16 15:55 07/12/16 15:55 Results - Labs CBC & Chem 7: 07/12/16 08:54 07/11/16 03:04 Labs: Laboratory Last Values WBC 8.4 K/mm3 (4.5-11.0) 07/12/16 08:54 RBC 3.17 M/mm3 (3.65-5.03) L 07/12/16 08:54 Hgb 9.7 gm/dl (11.8-15.2) L 07/12/16 08:54 Hct 29.1 % (35.5-45.6) L 07/12/16 08:54 MCV 92 fl (84-94) 07/12/16 08:54 MCH 31 pg (28-32) 07/12/16 08:54 MCHC 33 % (32-34) 07/12/16 08:54 RDW 13.7 % (13.2-15.2) 07/12/16 08:54 Plt Count 457 K/mm3 (140-440) H 07/12/16 08:54 Lymph % (Auto) 15.4 % (13.4-35.0) 07/12/16 08:54 [place] % (Auto) 7.7 % (0.0-7.3) H 07/12/16 08:54 Eos % (Auto) 2.4 % (0.0-4.3) 07/12/16 08:54 Baso % (Auto) 0.8 % (0.0-1.8) 07/12/16 08:54 Lymph # 1.3 K/mm3 (1.2-5.4) 07/12/16 08:54 [place] # 0.6 K/mm3 (0.0-0.8) 07/12/16 08:54 Eos # 0.2 K/mm3 (0.0-0.4) 07/12/16 08:54 Baso # 0.1 K/mm3 (0.0-0.1) 07/12/16 08:54 Seg Neutrophils % 73.7 % (40.0-70.0) H 07/12/16 08:54 Seg Neutrophils # 6.2 K/mm3 (1.8-7.7) 07/12/16 08:54 PT 24.6 Sec. (12.2-14.9) H 07/11/16 00:15 INR 2.21 (0.87-1.13) H 07/11/16 00:15 APTT 53.3 Sec. (24.2-36.6) H 07/11/16 00:15 VBG pH 7.314 (7.320-7.420) L 07/10/16 13:07 Sodium 131 mmol/L (137-145) L 07/11/16 03:04 Potassium 4.5 mmol/L (3.6-5.0) 07/11/16 03:04 Chloride 96.1 mmol/L (98-107) L 07/11/16 03:04 Carbon Dioxide 23 mmol/L (22-30) 07/11/16 03:04 Anion Gap 16 mmol/L 07/11/16 03:04 BUN 37 mg/dL (9-20) H 07/11/16 03:04 Creatinine 1.1 mg/dL (0.8-1.5) 07/11/16 03:04 Estimated GFR > 60 ml/min 07/11/16 03:04 BUN/Creatinine Ratio 33.63 % 07/11/16 03:04 Glucose 106 mg/dL (75-100) H 07/11/16 03:04 Lactic Acid 1.3 mmol/L (0.7-2.0) 07/10/16 16:51 Calcium 8.2 mg/dL (8.4-10.2) L 07/11/16 03:04 Total Bilirubin 0.3 mg/dL (0.1-1.2) 07/10/16 13:07 AST 35 units/L (5-40) 07/10/16 13:07 ALT 50 units/L (7-56) 07/10/16 13:07 Alkaline Phosphatase 104 units/L (35-129) 07/10/16 13:07 Total Protein 6.6 g/dL (6.3-8.2) 07/10/16 13:07 Albumin 3.0 g/dL (3.9-5) L 07/10/16 13:07 Albumin/Globulin Ratio 0.8 % 07/10/16 13:07
[2016-07-12] MEDS: NEURONTIN PO SCH (21:39)
[2016-07-12] MEDS ORDERED: LOVENOX SUB-Q SCH (22:00)
[2016-07-12] MEDS ORDERED: XARELTO PO SCH (22:00)
[2016-07-13] MEDS: PERCOCET 5/325 PO PRN ×3 (05:32→20:05)
[2016-07-13] MEDS: NEURONTIN PO SCH ×3 (05:32→21:44)
[2016-07-13 06:54] LABS: Anion Gap 18 mmol/L; Blood Urea Nitrogen 14 mg/dL (9-20); Calcium 8.8 mg/dL (8.4-10.2); Carbon Dioxide 27 mmol/L (22-30); Chloride 99.3 mmol/L (98-107); Glucose 94 mg/dL (75-100); Potassium 4.9 mmol/L (3.6-5.0); Sodium 139 mmol/L (137-145)
[2016-07-13] MEDS: NACL 0.9% 1000 ML 1,000 ML IV SCH (08:14)
[2016-07-13] MEDS: CATAPRES PO SCH ×2 (10:58→21:42)
[2016-07-13] MEDS: HABITROL TD SCH (10:58)
[2016-07-13] MEDS: OxyCONTIN PO SCH ×2 (10:59→21:42)
[2016-07-13] MEDS: ZESTRIL PO SCH (10:59)
[2016-07-13] MEDS: VANCOMYCIN VIAL 1,500 MG in NACL 0.9% 500 ML 500 ML IV SCH (11:00)
[2016-07-13] MEDS: LOVENOX SUB-Q SCH ×2 (11:01→21:44)
[2016-07-13] MEDS: NORVASC PO SCH (11:54)
--- NOTE | 2016-07-13 14:08 | Event Note ---
Date: 07/13/16 Patient seen at bedside. Right leg edema bilateral compared with yesterday. VAC dressing in place and functioning well with serous exudate in the canister. Pain controlled on by mouth pain medications. As per patient, he is not qualified for rehabilitation and will be sent home with home health aide and home PT.
--- NOTE | 2016-07-13 14:38 | Progress Note ---
Assessment and Plan Assessment and plan: Acute renal failure, resolved Possible wound infection Peripheral vascular disease Recent fasciotomy for right leg ischemia Hypertension, benign Sleep apnea Plan: cont IV fluid, IV vancomycin blood culture negative, repeat PT/INR vascular surgeon following, recommended to continue wound vac started on anticoagulation by lovenox Continue appropriate outpatient medication CM consulted for rehab on d/c but pt is not getting placed due to insurance If he cannot get accepted to LTAC then d/c to home with HH History Interval history: Patient seen and examined. Medical records and medication list reviewed. No acute event overnight noted by the RN. Patient denies any chest pain or difficulty breathing. Patient is tolerating diet. c/o rt LE pain. placed back on wound vac and cont to drain updated family at bedside Hospitalist Physical - Physical exam Narrative exam: GENERAL: well-developed and well-nourished WM lying on bed appeared to be in no discomfort. HEENT: Normocephalic. Atraumatic. No conjunctival congestion or icterus. Patient has moist mucous membranes. NECK: Supple. Trachea midline. CHEST/LUNGS: Clear to auscultated bilaterally, breathing nonlabored. No wheezes crackles or rhonchi. HEART/CARDIOVASCULAR: Regular in rate and rhythm. S1 and S2 positive. ABDOMEN: Abdomen is soft, nontender. Patient has normal bowel sounds. SKIN: There is no rash. Warm and dry. NEURO: No focal motor deficit. Follows command. EXTRIMITY: Right lower extremity covered with wound dressing and wound vac. PSYCH: Cooperative. - Constitutional Vitals: Temp Pulse Resp BP Pulse Ox 97.5 F L 95 H 20 161/89 97 07/13/16 08:00 07/13/16 08:00 07/13/16 08:00 07/13/16 08:00 07/13/16 08:00 Results - Labs CBC & Chem 7: 07/12/16 08:54 07/13/16 05:36 Labs: Laboratory Last Values WBC 8.4 K/mm3 (4.5-11.0) 07/12/16 08:54 RBC 3.17 M/mm3 (3.65-5.03) L 07/12/16 08:54 Hgb 9.7 gm/dl (11.8-15.2) L 07/12/16 08:54 Hct 29.1 % (35.5-45.6) L 07/12/16 08:54 MCV 92 fl (84-94) 07/12/16 08:54 MCH 31 pg (28-32) 07/12/16 08:54 MCHC 33 % (32-34) 07/12/16 08:54 RDW 13.7 % (13.2-15.2) 07/12/16 08:54 Plt Count 457 K/mm3 (140-440) H 07/12/16 08:54 Lymph % (Auto) 15.4 % (13.4-35.0) 07/12/16 08:54 [place] % (Auto) 7.7 % (0.0-7.3) H 07/12/16 08:54 Eos % (Auto) 2.4 % (0.0-4.3) 07/12/16 08:54 Baso % (Auto) 0.8 % (0.0-1.8) 07/12/16 08:54 Lymph # 1.3 K/mm3 (1.2-5.4) 07/12/16 08:54 [place] # 0.6 K/mm3 (0.0-0.8) 07/12/16 08:54 Eos # 0.2 K/mm3 (0.0-0.4) 07/12/16 08:54 Baso # 0.1 K/mm3 (0.0-0.1) 07/12/16 08:54 Seg Neutrophils % 73.7 % (40.0-70.0) H 07/12/16 08:54 Seg Neutrophils # 6.2 K/mm3 (1.8-7.7) 07/12/16 08:54 PT 24.6 Sec. (12.2-14.9) H 07/11/16 00:15 INR 2.21 (0.87-1.13) H 07/11/16 00:15 APTT 53.3 Sec. (24.2-36.6) H 07/11/16 00:15 VBG pH 7.314 (7.320-7.420) L 07/10/16 13:07 Sodium 139 mmol/L (137-145) D 07/13/16 05:36 Potassium 4.9 mmol/L (3.6-5.0) 07/13/16 05:36 Chloride 99.3 mmol/L (98-107) 07/13/16 05:36 Carbon Dioxide 27 mmol/L (22-30) 07/13/16 05:36 Anion Gap 18 mmol/L 07/13/16 05:36 BUN 14 mg/dL (9-20) 07/13/16 05:36 Creatinine 0.7 mg/dL (0.8-1.5) L 07/13/16 05:36 Estimated GFR > 60 ml/min 07/13/16 05:36 BUN/Creatinine Ratio 20.00 % 07/13/16 05:36 Glucose 94 mg/dL (75-100) 07/13/16 05:36 Lactic Acid 1.3 mmol/L (0.7-2.0) 07/10/16 16:51 Calcium 8.8 mg/dL (8.4-10.2) 07/13/16 05:36 Total Bilirubin 0.3 mg/dL (0.1-1.2) 07/10/16 13:07 AST 35 units/L (5-40) 07/10/16 13:07 ALT 50 units/L (7-56) 07/10/16 13:07 Alkaline Phosphatase 104 units/L (35-129) 07/10/16 13:07 Total Protein 6.6 g/dL (6.3-8.2) 07/10/16 13:07 Albumin 3.0 g/dL (3.9-5) L 07/10/16 13:07 Albumin/Globulin Ratio 0.8 % 07/10/16 13:07
[2016-07-14 05:41] LABS: INR 1.09 (0.87-1.13)
[2016-07-14] MEDS: VANCOMYCIN VIAL 1,500 MG in NACL 0.9% 500 ML 500 ML IV SCH ×2 (05:57→12:33)
[2016-07-14] MEDS: PERCOCET 5/325 PO PRN ×3 (05:58→17:15)
[2016-07-14] MEDS: NEURONTIN PO SCH ×2 (05:59→17:23)
[2016-07-14] MEDS: CATAPRES PO SCH (10:09)
[2016-07-14] MEDS: ZESTRIL PO SCH (10:10)
[2016-07-14] MEDS: OxyCONTIN PO SCH ×2 (10:10→10:12)
[2016-07-14] MEDS: HABITROL TD SCH (10:11)
[2016-07-14] MEDS: LOVENOX SUB-Q SCH (10:11)
[2016-07-14] MEDS: NORVASC PO SCH (10:13)
--- NOTE | 2016-07-14 14:43 | Discharge Summary ---
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 Wound vacs were placed and the pt was discharged home. He developed uncontrolled pain while at home. He presented to the emergency room with acute renal failure and inability to ambulate. His wound vac apparently malfunctioned and the device was removed, but the sponges were left in placed. Vascular surgeon was consulted and wound care was following him. He was placed back on wound VAC and educated about the wound care protocol. His manager beverage was notified if the patient could qualify it for rehabilitation or LTAC. Patient has a high deductible for insurance and did not qualify for rehabilitation during his last hospitalization. Patient was explained and educated about the wound care. He was discharged back home in stable condition. His renal function was improved with IV fluid hydration. He was given Keflex to complete a total 10 days of course. Discharge diagnosis: Acute renal failure, resolved, activity due to vasomotor nephropathy Possible wound infection Peripheral vascular disease Recent fasciotomy for right leg ischemia Hypertension, benign Sleep apnea Disposition: DC/TX HOME UNDER HOME HEALTH Time spent for discharge: 32minutes Core Measure Documentation - Palliative Care Palliative Care/ Comfort Measures: Not Applicable - Core Measures Any of the following diagnoses?: none Exam - Physical Exam Narrative exam: GENERAL: well-developed and well-nourished WM lying on bed appeared to be in no discomfort. HEENT: Normocephalic. Atraumatic. No conjunctival congestion or icterus. Patient has moist mucous membranes. NECK: Supple. Trachea midline. CHEST/LUNGS: Clear to auscultated bilaterally, breathing nonlabored. No wheezes crackles or rhonchi. HEART/CARDIOVASCULAR: Regular in rate and rhythm. S1 and S2 positive. ABDOMEN: Abdomen is soft, nontender. Patient has normal bowel sounds. SKIN: There is no rash. Warm and dry. NEURO: No focal motor deficit. Follows command. EXTRIMITY: Right lower extremity covered with wound dressing and wound vac. PSYCH: Cooperative. - Constitutional Vitals: Temp Pulse Resp BP Pulse Ox 98.2 F 95 H 20 140/87 96 07/14/16 12:53 07/14/16 12:53 07/14/16 12:53 07/14/16 12:53 07/14/16 12:53 Plan Activity: advance as tolerated, fall precautions Diet: low cholesterol, low salt Wound: per wound nurse instructions Follow up with: TASHIA HAILE PA [Primary Care Provider] - 3-5 Days Prescriptions: Cephalexin [Keflex] 500 mg PO Q12HR #10 cap
[2016-07-14 16:12] VITALS: BP 125/85
== END 2016-07-14 18:54 | disposition home health service (06) | DRG 862 ==
LOC: ED 11:47 → 4A 22:33 → CC1 07-11 04:32 → 4A 07-12 13:39
PROVIDERS: ADMIT Internal Medicine; ATTEND Internal Medicine
DX: T81.4XXA Infection following a procedure, initial encounter (principal); N17.0 Acute kidney failure with tubular necrosis; I73.9 Peripheral vascular disease, unspecified; M17.11 Unilateral primary osteoarthritis, right knee; J44.9 Chronic obstructive pulmonary disease, unspecified; G93.2 Benign intracranial hypertension; G47.30 Sleep apnea, unspecified; Y83.8 Other surgical procedures as the cause of abnormal reaction of the patient, or of later complication, without mention of misadventure at the time of the procedure; F17.200 Nicotine dependence, unspecified, uncomplicated; Z98.890 Other specified postprocedural states; Z82.49 Family history of ischemic heart disease and other diseases of the circulatory system; Y92.89 Other specified places as the place of occurrence of the external cause
CPT/HCPCS: 36415; 80048; 80053; 82140; 82805; 85025; 85610; 85730; 87040; 93005; 93010; 96361; 96365; J1650; J2270; J3370; J7030; J7040

== ENCOUNTER 2016-07-17 08:05 | Outpatient (CLI) | payer OTHER ==
[2016-07-17] MEDS ORDERED: XYLOCAINE TOPICAL 4% TP ONE ×2 (08:19→09:00)
[2016-07-17] MEDS ORDERED: NACL 0.9% 500 ML IR ONE (08:20)
[2016-07-17] MEDS ORDERED: NACL 0.9% IR ONE (09:30)
== END 2016-07-17 08:06 | disposition home or self-care (01) ==
LOC: WOUND 08:05
PROVIDERS: ATTEND Nurse Practitioner
DX: T81.31XA Disruption of external operation (surgical) wound, not elsewhere classified, initial encounter (principal); I70.232 Atherosclerosis of native arteries of right leg with ulceration of calf; L97.811 Non-pressure chronic ulcer of other part of right lower leg limited to breakdown of skin; L89.619 Pressure ulcer of right heel, unspecified stage; I73.9 Peripheral vascular disease, unspecified; I10 Essential (primary) hypertension; J44.9 Chronic obstructive pulmonary disease, unspecified; F17.210 Nicotine dependence, cigarettes, uncomplicated; Z86.718 Personal history of other venous thrombosis and embolism; Y83.8 Other surgical procedures as the cause of abnormal reaction of the patient, or of later complication, without mention of misadventure at the time of the procedure
CPT/HCPCS: 11042; 97606; G0463

== ENCOUNTER 2016-07-17 12:02 | Outpatient (CLI) | payer OTHER ==
--- NOTE | 2016-07-18 07:55 | Vascular Lab Report ---
RIGHT LOWER EXTREMITY ARTERIAL DUPLEX: REASON FOR EXAM: Peripheral arterial disease. COMMENTS ON THE RIGHT: Monophasic waveforms are seen proximally. Monophasic waveforms are seen distally. No significant velocity gradients are identified. No focal significant plaque is identified. Findings are consistent with normal perfusion. Findings are consistent with the ability to heal distal wounds. IMPRESSION: RIGHT: No identifiable stenosis in the right lower extremity. Monophasic wave flow throughout suggesting inflow disease. Further imaging with ABIs or contrast angiography could be considered if clinically warranted..
== END 2016-07-17 12:03 | disposition home or self-care (01) ==
LOC: VAS 12:02
PROVIDERS: ATTEND Nurse Practitioner
DX: I73.9 Peripheral vascular disease, unspecified (principal)

== ENCOUNTER 2016-07-24 10:57 | Outpatient (CLI) | payer OTHER ==
[2016-07-24] MEDS ORDERED: XYLOCAINE TOPICAL 4% TP ONE ×3 (11:12→13:07)
== END 2016-07-24 10:58 | disposition home or self-care (01) ==
LOC: WOUND 10:57
PROVIDERS: ATTEND Nurse Practitioner
DX: T81.31XD Disruption of external operation (surgical) wound, not elsewhere classified, subsequent encounter (principal); I70.232 Atherosclerosis of native arteries of right leg with ulceration of calf; L97.211 Non-pressure chronic ulcer of right calf limited to breakdown of skin; F17.210 Nicotine dependence, cigarettes, uncomplicated; I10 Essential (primary) hypertension; Z86.718 Personal history of other venous thrombosis and embolism; I73.9 Peripheral vascular disease, unspecified; J44.9 Chronic obstructive pulmonary disease, unspecified; N20.0 Calculus of kidney; F19.90 Other psychoactive substance use, unspecified, uncomplicated; Y83.8 Other surgical procedures as the cause of abnormal reaction of the patient, or of later complication, without mention of misadventure at the time of the procedure
CPT/HCPCS: 11042; 11045; 97606; G0463; 99212

== ENCOUNTER 2016-07-28 13:35 | Outpatient (CLI) | payer OTHER | END 2016-07-28 13:36 | disposition home or self-care (01) | LOC: WOUND 13:35 | PROVIDERS: ATTEND Internal Medicine | DX: T81.89XD Other complications of procedures, not elsewhere classified, subsequent encounter (principal); L89.619 Pressure ulcer of right heel, unspecified stage; L89.519 Pressure ulcer of right ankle, unspecified stage; I10 Essential (primary) hypertension; I73.9 Peripheral vascular disease, unspecified; Z86.718 Personal history of other venous thrombosis and embolism; J44.9 Chronic obstructive pulmonary disease, unspecified; F17.210 Nicotine dependence, cigarettes, uncomplicated; Y83.8 Other surgical procedures as the cause of abnormal reaction of the patient, or of later complication, without mention of misadventure at the time of the procedure | CPT/HCPCS: 97606 ==

== ENCOUNTER 2016-07-31 10:55 | Outpatient (CLI) | payer OTHER ==
[2016-07-31] MEDS ORDERED: XYLOCAINE TOPICAL 4% TP ONE (11:56)
== END 2016-07-31 10:56 | disposition home or self-care (01) ==
LOC: WOUND 10:55
PROVIDERS: ATTEND Nurse Practitioner
DX: T81.31XA Disruption of external operation (surgical) wound, not elsewhere classified, initial encounter (principal); I70.232 Atherosclerosis of native arteries of right leg with ulceration of calf; L97.211 Non-pressure chronic ulcer of right calf limited to breakdown of skin; L89.619 Pressure ulcer of right heel, unspecified stage; F17.290 Nicotine dependence, other tobacco product, uncomplicated; I10 Essential (primary) hypertension; M79.A21 Nontraumatic compartment syndrome of right lower extremity; I73.9 Peripheral vascular disease, unspecified; J44.9 Chronic obstructive pulmonary disease, unspecified; Z87.442 Personal history of urinary calculi; Z86.718 Personal history of other venous thrombosis and embolism; F19.90 Other psychoactive substance use, unspecified, uncomplicated; Y83.8 Other surgical procedures as the cause of abnormal reaction of the patient, or of later complication, without mention of misadventure at the time of the procedure

== ENCOUNTER 2016-08-08 11:30 | Inpatient (IN) | payer OTHER ==
[2016-08-08] MEDS ORDERED: AMBIEN PO PRN (13:07)
[2016-08-08] MEDS ORDERED: SENOKOT PO PRN (13:07)
[2016-08-08] MEDS ORDERED: TYLENOL PO PRN (13:07)
[2016-08-08] MEDS ORDERED: DULCOLAX PR PRN (13:07)
[2016-08-08] MEDS ORDERED: FLEXERIL PO PRN (13:12)
[2016-08-08] MEDS ORDERED: CATAPRES PO SCH (14:00)
--- NOTE | 2016-08-08 14:14 | History and Physical Report ---
History of Present Illness Date: 08/08/16 Referring Facility: [facility] Referring physician: Dr. Steven Mcgrath Date of admission: 08/08/16 11:30 Chief Complaint: Right Above Knee Amputation History of present illness: POST ADMISSION PHYSICIAN EVALUATION ONSET DATE: 08/04/16 IMPAIRMENT GROUP CODE: 05.3 ETIOLOGIC DIAGNOSIS: Right AKA, Arterial embolism and thrombosis of right lower extremity STATUS CHANGES SINCE PREADMISSION SCREENING: PAS has been reviewed. Pt remains an appropriate candidate for IRU admission. PREVIOUS FUNCTIONAL STATUS: Independent with ADLs, gait, transfers CURRENT FUNCTIONAL STATUS: Setup for ADLs, Mod-min A with transfers, Jose Francisco-CGA for WC History of Present Illness: 46 year old hypertensive male who had a severe ischemic episode of the right lower extremity for which he was successfully re-vascularized. Post-procedure, he developed a severe compartment syndrome which needed emergent compartment fasciotomies. On 08/04/16, Dr. Sotelo performed debridement of the anterior compartment of right lower extremity including soft tissue and muscle. Intra- operatively, he was found to have extensive right leg necrosis. So on 08/05/16, he underwent a right knee above knee amputation. he now presetns for acute rehab. Impression: 46 year old male with HTN admitted to acute rehab unit for right AKA. The patient is medically stable, however, requires ongoing medical management. Pt is appropriate for inpatient rehabilitation admission and is thought to be able to tolerate at least 3 hours of therapy a day, 5 days a week including 1.5 hours of physical therapy and 1.5 hours of occupational therapy. Patient is able to understand and follow basic directions and has attainable rehab goals. Potential barriers/complications include falls, respiratory distress, DVT, PE, syncope, hypotension. Plan 1. Rehabilitation- Pt will undergo multidisciplinary/integrative rehab PT/OT, Nursing. Areas to be addressed include, but are not limited to PT for mobility , strengthening, transfer training, ROM, endurance, stairs, balance; OT for ADLs , household tasks, adaptive equipment; Nursing for carryover of therapies, pain control, education, skin integrity, medication management, bowel/bladder management; Nutrition as needed; director of clinical services for discharge planning and equipment needs. Potential interventions include appropriate assistive device or adaptive equipment. Expected overall level of functional improvement by discharge is [place]/S for transfers/mobility and setup to [facility] with ADls. Pt will tentatively be discharged home with outpatient PT. Estimated length of stay is 7-10 days. 2. Pain Management: [place] prn, Tramadol, Flexeril, Gabapentin 3. HTN: Clonidine, Lisinopril 4. S/P Right AKA: Local wound care. Stump protector 5. PAD: Plavix 6. DVT Prophylaxis: Heparin Past History Past Medical History: DVT, hypertension Social history: smoking Medications and Allergies Allergies Allergy/AdvReac Type Severity Reaction Status Date / Time No Known Allergies Allergy Unverified 01/12/13 12:24 Home Medications Medication Instructions Recorded Confirmed Last Taken Type Cyclobenzaprine [Flexeril 10 MG 10 mg PO TID PRN #30 tablet 07/08/16 08/04/16 Rx TAB] Lisinopril [Zestril TAB] 20 mg PO DAILY #30 tablet 07/08/16 08/04/16 08/03/16 21 :30 Rx amLODIPine [Norvasc] 5 mg PO DAILY #30 tablet 07/08/16 08/04/16 08/04/16 09:30 Rx Gabapentin [Neurontin] 600 mg PO Q8HR 08/04/16 08/04/16 08/04/16 09:30 History HYDROcodone/ACETAMINOPHEN 1 tab PO TID PRN 08/04/16 08/04/16 08/04/16 07:30 History [HYDROcodone-Acetaminophn 10-325] Tramadol HCl [traMADol] 1 tab PO QDAY 08/04/16 08/04/16 07/31/16 History cloNIDine [Catapres] 0.1 mg PO Q12H 08/04/16 08/04/16 08/04/16 09:30 History Clopidogrel [Plavix] 75 mg PO QDAY tablet 08/07/16 Unknown Rx Active Meds: Active Medications Acetaminophen (Tylenol) 650 mg PO Q4H PRN PRN Reason: Pain MILD(1-3)/Fever >100.5/[place] Acetaminophen/Hydrocodone Bitart ([place] 5/325) 1 each PO Q8H PRN PRN Reason: Pain, Moderate (4-6) Bisacodyl (Dulcolax) 10 mg [place] QDAY PRN PRN Reason: Constipation unrelieved by MOM Clonidine HCl ([place]apres) 0.1 mg PO Q12H DAGMAR Clopidogrel Bisulfate (Plavix) 75 mg PO QDAY DAGMAR Cyclobenzaprine HCl (Flexeril) 10 mg PO TID PRN PRN Reason: Muscle Spasm Docusate Sodium (Colace) 100 mg PO BID DAGMAR Gabapentin (Neurontin) 600 mg PO Q8HR DAGMAR Heparin Sodium (Porcine) (Heparin) 5,000 unit SUB-Q Q8HR DAGMAR Lisinopril (Zestril) 20 mg PO DAILY DAGMAR Multivitamins (Theragran Tab) 1 each PO QDAY DAGMAR Senna (Senokot) 8.6 mg PO Q12H PRN PRN Reason: Laxative Effect Tramadol HCl (Ultram) mg PO QDAY DAGMAR Zolpidem Tartrate (Ambien) 5 mg PO QHS PRN PRN Reason: Sleep Exam - Constitutional General appearance: no acute distress, well-nourished - EENT Eyes: EOM intact ENT: hearing intact - Neck Neck: supple - Respiratory Respiratory effort: normal - Breasts Breasts: deferred - Cardiovascular Rhythm: regular - Extremities Extremities: normal color, abnormal (Right AKA with krista) - Gastrointestinal General gastrointestinal: Present: soft, non-tender, non-distended Rectal Exam: deferred - Integumentary Integumentary: Present: warm, dry - Musculoskeletal Musculoskeletal: strength equal bilaterally (upper extremities), other (b/l hip ) - Neurologic Neurologic: CNII-XII intact - Psychiatric Psychiatric: appropriate mood/affect, intact judgment & insight Assessment and Plan Assessment and plan: Patient was assessed and evaluated for Acute Inpatient Rehab Unit. - Patient Problems (1) Arterial occlusion Current Visit: No Status: Acute (2) Embolism and thrombosis of arteries of lower extremity Current Visit: No Status: Acute (3) Hypertension Current Visit: No Status: Chronic Qualifiers: Hypertension type: H (4) Above knee amputation of right lower extremity Current Visit: Yes Status: Acute
[2016-08-08] MEDS: NEURONTIN PO SCH ×2 (17:17→22:23)
[2016-08-08] MEDS: HEPARIN SUB-Q SCH ×2 (17:18→22:00)
[2016-08-08] MEDS: NORCO 5/325 PO PRN (17:21)
[2016-08-08] MEDS: COLACE PO SCH (22:23)
[2016-08-09 04:44] LABS: Basophils % (Auto) 1.2 % (0.0-1.8); Eosinophils % (Auto) 2.6 % (0.0-4.3); Hematocrit 33.2 % (35.5-45.6); Hemoglobin 10.9 gm/dl (11.8-15.2); Mean Corpuscular HGB Conc 33 % (32-34); Mean Corpuscular Hemoglobin 28 pg (28-32); Mean Corpuscular Volume 87 fl (84-94); Platelet Count 696 K/mm3 (140-440); Red Blood Count 3.83 M/mm3 (3.65-5.03); Red Cell Distribution Width 15.7 % (13.2-15.2); White Blood Count 7.7 K/mm3 (4.5-11.0)
[2016-08-09 05:11] LABS: Alanine Aminotransferase 21 units/L (7-56); Albumin/Globulin Ratio 0.8 %; Alkaline Phosphatase 121 units/L (35-129); Anion Gap 19 mmol/L; BUN/Creatinine Ratio 18.57; Bilirubin,Total 0.2 mg/dL (0.1-1.2); Blood Urea Nitrogen 13 mg/dL (9-20); Carbon Dioxide 25 mmol/L (22-30); Chloride 96.7 mmol/L (98-107); Glucose 100 mg/dL (75-100); Potassium 4.5 mmol/L (3.6-5.0); Sodium 136 mmol/L (137-145); Total Protein 6.7 g/dL (6.3-8.2)
[2016-08-09 05:46] LABS: Bilirubin,Urine NEG (Negative); Blood,Urine NEG (Negative); Ketones,Urine NEG (Negative); Leukocyte Esterase,Urine NEG (Negative); Mucus,Urine FEW /HPF; Nitrite,Urine NEG (Negative); Protein,Urine <15 mg/dL mg/dL (Negative); Urobilinogen,Urine < 2.0 mg/dL (<2.0)
[2016-08-09] MEDS: NEURONTIN PO SCH ×3 (06:47→21:44)
[2016-08-09] MEDS: CATAPRES PO SCH ×3 (06:48→21:43)
[2016-08-09] MEDS: HEPARIN SUB-Q SCH ×4 (06:50→22:12)
[2016-08-09] MEDS: COLACE PO SCH ×2 (09:05→21:46)
[2016-08-09] MEDS: ULTRAM PO SCH (09:05)
[2016-08-09] MEDS: PLAVIX PO SCH (09:05)
[2016-08-09] MEDS: THERAGRAN Tab PO SCH (09:05)
--- NOTE | 2016-08-09 11:54 | Progress Note ---
Subjective Date of service: 08/09/16 Principal diagnosis: Right AKA Interval history: No adverse overnight events. he expressed that he wants to go home today, but he is willing to stay until Thursday. Family is afraid of potential infection and would like him to stay longer. He thinks he is already able to do rehab at home by himself. 46 year old male with HTN admitted to acute rehab unit for right AKA. The patient is medically stable, however, requires ongoing medical management. Pt is appropriate for inpatient rehabilitation admission and is thought to be able to tolerate at least 3 hours of therapy a day, 5 days a week including 1.5 hours of physical therapy and 1.5 hours of occupational therapy. Patient is able to understand and follow basic directions and has attainable rehab goals. Potential barriers/complications include falls, respiratory distress, DVT, PE, syncope, hypotension. Plan 1. Rehabilitation- Pt will undergo multidisciplinary/integrative rehab PT/OT, Nursing. Areas to be addressed include, but are not limited to PT for mobility , strengthening, transfer training, ROM, endurance, stairs, balance; OT for ADLs , household tasks, adaptive equipment; Nursing for carryover of therapies, pain control, education, skin integrity, medication management, bowel/bladder management; Nutrition as needed; services advisor for discharge planning and equipment needs. Potential interventions include appropriate assistive device or adaptive equipment. Expected overall level of functional improvement by discharge is [place]/S for transfers/mobility and setup to [facility] with ADls. Pt will tentatively be discharged home with outpatient PT. Estimated length of stay is 7-10 days. 2. Pain Management: [place] prn, Tramadol, Flexeril, Gabapentin 3. HTN: Clonidine, Lisinopril 4. S/P Right AKA: Local wound care. Stump protector 5. PAD: Plavix 6. DVT Prophylaxis: Heparin Objective - Exam Narrative Exam: - Constitutional General appearance: no acute distress, well-nourished - EENT Eyes: EOM intact ENT: hearing intact - Neck Neck: supple - Respiratory Respiratory effort: normal - Breasts Breasts: deferred - Cardiovascular Rhythm: regular - Extremities Extremities: normal color, abnormal (Right AKA with krista) - Gastrointestinal General gastrointestinal: Present: soft, non-tender, non-distended Rectal Exam: deferred - Integumentary Integumentary: Present: warm, dry - Musculoskeletal Musculoskeletal: strength equal bilaterally (upper extremities), other (b/l hip ) - Neurologic Neurologic: CNII-XII intact - Psychiatric Psychiatric: appropriate mood/affect, intact judgment & insight - Constitutional Vitals: Vital Signs - 12hr 08/09/16 08/09/16 06:48 08:23 Temperature 97.5 F L Pulse Rate 106 H Respiratory 96 H Rate Blood Pressure 124/91 O2 Sat by Pulse 100 Oximetry - Labs CBC & Chem 7: 08/09/16 04:18 08/09/16 04:18 Labs: Laboratory Results - last 72 hr 08/09/16 08/09/16 08/09/16 04:18 04:18 04:43 WBC 7.7 RBC 3.83 Hgb 10.9 L Hct 33.2 L MCV 87 MCH 28 MCHC 33 RDW 15.7 H Plt Count 696 H Lymph % (Auto) 32.3 [place] % (Auto) 7.1 Eos % (Auto) 2.6 Baso % (Auto) 1.2 Lymph # 2.5 [place] # 0.5 Eos # 0.2 Baso # 0.1 Seg Neutrophils % 56.8 Seg Neutrophils # 4.4 Sodium 136 L Potassium 4.5 Chloride 96.7 L Carbon Dioxide 25 Anion Gap 19 BUN 13 Creatinine 0.7 L Estimated GFR > 60 BUN/Creatinine Ratio 18.57 Glucose 100 Calcium 9.0 Total Bilirubin 0.2 AST 21 ALT 21 Alkaline Phosphatase 121 Total Protein 6.7 Albumin 3.0 L Albumin/Globulin Ratio 0.8 Urine Color Yellow Urine Turbidity Clear Urine pH 6.0 Ur Specific [place] 1.020 Urine Protein <15 mg/dl Urine Glucose (UA) Neg Urine Ketones Neg Urine Blood Neg Urine Nitrite Neg Urine Bilirubin Neg Urine Urobilinogen < 2.0 Ur Leukocyte Esterase Neg Urine WBC (Auto) 3.0 Urine RBC (Auto) 5.0 Hyaline Casts 4 Urine Mucus Few Assessment and Plan - Patient Problems (1) Arterial occlusion Current Visit: No Status: Acute (2) Embolism and thrombosis of arteries of lower extremity Current Visit: No Status: Acute (3) Hypertension Current Visit: No Status: Chronic Qualifiers: Hypertension type: H (4) Above knee amputation of right lower extremity Current Visit: Yes Status: Acute
[2016-08-09] MEDS: ZESTRIL PO SCH (12:21)
[2016-08-09] MEDS: NORCO 5/325 PO PRN ×2 (13:16→21:45)
[2016-08-10] MEDS: NORCO 5/325 PO PRN ×3 (06:05→21:41)
[2016-08-10] MEDS: NEURONTIN PO SCH ×3 (06:06→21:37)
[2016-08-10] MEDS: HEPARIN SUB-Q SCH ×3 (07:03→22:43)
[2016-08-10] MEDS: COLACE PO SCH ×2 (07:46→21:57)
[2016-08-10] MEDS: THERAGRAN Tab PO SCH (07:47)
[2016-08-10] MEDS: ULTRAM PO SCH ×2 (07:47→17:15)
[2016-08-10] MEDS: PLAVIX PO SCH (07:47)
[2016-08-10] MEDS: ZESTRIL PO SCH (12:44)
[2016-08-10] MEDS: CATAPRES PO SCH ×2 (12:45→21:38)
--- NOTE | 2016-08-10 14:59 | Progress Note ---
Subjective Date of service: 08/10/16 Principal diagnosis: Right AKA Interval history: No adverse overnight events. He has agreed to stay through Thursday. 46 year old male with HTN admitted to acute rehab unit for right AKA. The patient is medically stable, however, requires ongoing medical management. Pt is appropriate for inpatient rehabilitation admission and is thought to be able to tolerate at least 3 hours of therapy a day, 5 days a week including 1.5 hours of physical therapy and 1.5 hours of occupational therapy. Patient is able to understand and follow basic directions and has attainable rehab goals. Potential barriers/complications include falls, respiratory distress, DVT, PE, syncope, hypotension. Plan 1. Rehabilitation- Pt will undergo multidisciplinary/integrative rehab PT/OT, Nursing. Areas to be addressed include, but are not limited to PT for mobility , strengthening, transfer training, ROM, endurance, stairs, balance; OT for ADLs , household tasks, adaptive equipment; Nursing for carryover of therapies, pain control, education, skin integrity, medication management, bowel/bladder management; Nutrition as needed; director of patient financial services for discharge planning and equipment needs. Potential interventions include appropriate assistive device or adaptive equipment. Expected overall level of functional improvement by discharge is [place]oss[place]/S for transfers/mobility and setup to [facility] with ADls. Pt will tentatively be discharged home with outpatient PT. Estimated length of stay is 7-10 days. 2. Pain Management: [place] prn, Tramadol, Flexeril, Gabapentin 3. HTN: Clonidine, Lisinopril 4. S/P Right AKA: Local wound care. Stump protector 5. PAD: Plavix 6. DVT Prophylaxis: Heparin Objective - Exam Narrative Exam: - Constitutional General appearance: no acute distress, well-nourished - EENT Eyes: EOM intact ENT: hearing intact - Neck Neck: supple - Respiratory Respiratory effort: normal - Breasts Breasts: deferred - Cardiovascular Rhythm: regular - Extremities Extremities: normal color, abnormal (Right AKA with krista) - Gastrointestinal General gastrointestinal: Present: soft, non-tender, non-distended Rectal Exam: deferred - Integumentary Integumentary: Present: warm, dry - Musculoskeletal Musculoskeletal: strength equal bilaterally (upper extremities), other (b/l hip ) - Neurologic Neurologic: CNII-XII intact - Psychiatric Psychiatric: appropriate mood/affect, intact judgment & insight - Constitutional Vitals: Vital Signs - 12hr 08/10/16 08/10/16 08/10/16 07:58 12:44 12:45 Temperature 97.2 F L Pulse Rate 90 90 Pulse Rate [ 110 H Left Brachial] Respiratory 20 Rate Blood Pressure 135/91 135/91 Blood Pressure 131/94 [Left Arm] - Allied health notes FIMS assessment as documented by PT/OT/ST: Grooming Patient cleans teeth/dentures: Yes Patient erickson/brushes hair: Yes Patient washes, rinses and Yes dries face: Patient washes, rinses and Yes dries hands: Patient performs (no make-up/ / (100%) shaving): Grooming FIM Score 5. Supervision ([place] applies toothpaste or opens containers.) Social interaction/Memory/Problem solving Social Interaction FIM Score 7. Complete [place] (Interacts appropriately. Controls temper.) Memory FIM Score 4. Minimal Assistance (Recognizes and remembers 75-90%.) Problem Solving FIM Score 6. Mod. [place] (Mild difficulty or needs more time w/ complex.) Transfers Mode of Locomotion: Walking Bed/Chair/Wheelchair Transfers 7. Complete [place] (Walking: Stands. W/C: FIM Score Locks brakes, pivots.) Toilet Transfers FIM Score 5. Supervision (Needs supervision or cueing.) Patient transferred to: Shower Shower Transfers FIM Score 5. Supervision (Needs supv. or set-up with device.) Locomotion- Stairs Device used on Stairs Handrail/s Number of Stairs Ascended/ 16 Descended Patient used handrail/support: Yes Stairs FIM Score 4. Minimal Assistance (Patient = 75% or more, touching. 12-14 stairs.) Locomotion- walk/wheelchair Most Frequent Mode of Walking Locomotion: Ambulation Distance 56 Walking FIM Score 2. Maximal Assistance (Patient = 25% or more. Minimum of 50 ft.) Wheelchair Propulsion Distance 340 Wheelchair FIM Score 6. Modified [place] (Wheels a minimum of 150 ft.) Eating Eating FIM Score 7. Complete [place] (Cuts meat, opens containers, regular diet.) Dressing-Upper body Patient retrieves clothing Yes items: Patient applies/removes UE No: n/a prosthesis or orthosis: Upper Body Dressing FIM Score 4. Minimal Assistance (Patient = 75% or more. Needs touching.) Dressing-lower body Patient retrieves clothing Yes items: Patient applies/removes LE Yes prosthesis or orthosis: Lower Body Dressing FIM Score 5. Supv./Set-Up ([place] sets out clothes or applies pros./orth.) - Labs CBC & Chem 7: 08/09/16 04:18 08/09/16 04:18 Labs: Laboratory Results - last 72 hr 08/09/16 08/09/16 08/09/16 04:18 04:18 04:43 WBC 7.7 RBC 3.83 Hgb 10.9 L Hct 33.2 L MCV 87 MCH 28 MCHC 33 RDW 15.7 H Plt Count 696 H Lymph % (Auto) 32.3 [place] % (Auto) 7.1 Eos % (Auto) 2.6 Baso % (Auto) 1.2 Lymph # 2.5 [place] # 0.5 Eos # 0.2 Baso # 0.1 Seg Neutrophils % 56.8 Seg Neutrophils # 4.4 Sodium 136 L Potassium 4.5 Chloride 96.7 L Carbon Dioxide 25 Anion Gap 19 BUN 13 Creatinine 0.7 L Estimated GFR > 60 BUN/Creatinine Ratio 18.57 Glucose 100 Calcium 9.0 Total Bilirubin 0.2 AST 21 ALT 21 Alkaline Phosphatase 121 Total Protein 6.7 Albumin 3.0 L Albumin/Globulin Ratio 0.8 Urine Color Yellow Urine Turbidity Clear Urine pH 6.0 Ur Specific [place] 1.020 Urine Protein <15 mg/dl Urine Glucose (UA) Neg Urine Ketones Neg Urine Blood Neg Urine Nitrite Neg Urine Bilirubin Neg Urine Urobilinogen < 2.0 Ur Leukocyte Esterase Neg Urine WBC (Auto) 3.0 Urine RBC (Auto) 5.0 Hyaline Casts 4 Urine Mucus Few Assessment and Plan - Patient Problems (1) Arterial occlusion Current Visit: No Status: Acute (2) Embolism and thrombosis of arteries of lower extremity Current Visit: No Status: Acute (3) Hypertension Current Visit: No Status: Chronic Qualifiers: Hypertension type: H (4) Above knee amputation of right lower extremity Current Visit: Yes Status: Acute
[2016-08-11] MEDS: NEURONTIN PO SCH ×2 (05:51→14:34)
[2016-08-11] MEDS: NORCO 5/325 PO PRN (05:58)
[2016-08-11] MEDS: HEPARIN SUB-Q SCH ×2 (07:00→14:34)
[2016-08-11 08:24] VITALS: BP 127/71
[2016-08-11] MEDS: CATAPRES PO SCH (09:00)
[2016-08-11] MEDS: THERAGRAN Tab PO SCH (09:55)
[2016-08-11] MEDS: PLAVIX PO SCH (09:55)
[2016-08-11] MEDS: ZESTRIL PO SCH (09:55)
[2016-08-11] MEDS: ULTRAM PO SCH (09:56)
[2016-08-11] MEDS: COLACE PO SCH (09:57)
--- NOTE | 2016-08-11 10:15 | IRU Plan of Care ---
Interdisciplinary Plan of Care - IP IRU INTERDISCIPLINARY PLAN: [facility] Inpatient Rehab Unit Plan of Care IRU Interdisciplinary Care Plan Start: 08/08/16 13: 02 Freq: Admission then PRN Status: Active Document 08/10/16 21:19 TH (Rec: 08/10/16 21:32 TH [id number]) Interdisciplinary Problem List Interdisciplinary Problem List Interdisciplinary Problem List Impaired Bathing/Grooming Query Text:Answers will Trigger Problems Impaired Dressing and Outcomes on Worklist. Impaired Mobility Impaired Transfers Impaired Toileting Pain Management Knowledge Deficits Medications Education IRU Interdisciplinary Care Plan Therapy Services Therapy Services Will Include: Physical Therapy Query Text:Patient will be seen for a Occupational Therapy minimum of 3 hours of daily therapy 5 out of 7 days a week. Therapy intensity may be adjusted within a 7 consecutive day period to effectively serve the individual needs of the patient. Treatment Frequency/Intensity/Duration Treatment Frequency 5 days per week Treatment Intensity 1.5 hrs per discipline (PT and OT) daily Treatment Duration 10-14 days Problem Area: Eating/Swallowing Eating/Swallowing Outcomes Eating/Swallowing Interventions Problem Area: Bathing/Grooming Bathing/Grooming Outcomes Improve [place] w/ Grooming Improve [place] w/ Bathing Bathing/Grooming Interventions ADL Training Use of Assistive Devices Therapeutic Exercise Therapeutic Activity Balance Work Activity Tolerance Work Patient/Caregiver Education Problem Area: Dressing Dressing Outcomes Improve [place] w/ UB Dressing Improve [place] w/ LB Dressing Dressing Interventions ADL Training Use of Assistive Devices Neuromuscular Re-Education Therapeutic Exercise Balance Work Patient/Caregiver Education Problem Area: Mobility Mobility Outcomes Improve [place] w/ Bed Mobility Improve [place] w/ Ambulation Improve [place] w/ Stairs /Curb Improve [place] w/ Wheelchair Mobility Interventions Therapeutic Exercise Neuromuscular Re-Ed. Activity Tolerance Work Use of Assistive Devices Patient/Caregiver Education Bed Mobility Work Gait Training W/C Mobility Work Problem Area: Transfers Transfers Outcomes Improve [place] w/ Bed Transfers Improve [place] w/ Toilet Transfers Improve [place] w/ Tub/ Shower Transfers Improve [place] w/ Car Transfers Transfers Interventions Transfer Training Therapeutic Exercise Neuromuscular Re-Education Activity Tolerance Work Use of Assistive Devices Patient/Caregiver Education Problem Area: Bowel/Bladder Managment Bowel/Bladder Outcomes Bowel/Bladder Interventions Problem Area: Toileting Toileting Outcomes Improve [place] w/ Toileting Toileting Interventions ADL Training Balance Work Patient/Caregiver Education Problem Area: Nutrition Nutrition Outcomes Nutrition Interventions Problem Area: Comprehension Comprehension Outcomes Comprehension Interventions Problem Area: Expression Expression Outcomes Expression Interventions Problem Area: Problem Solving Problem Solving Outcomes Problem Solving Interventions Problem Area: Memory Memory Outcomes Memory Interventions Problem Area: Pain Management Pain Management Outcomes Demonstrate/Verbalize Pain Strategies Pain Management Interventions Medication Management Positioning/Turning Patient/Caregiver Education Problem Area: Knowledge Deficits Knowledge Deficits Outcomes Verbalize Precautions Knowledge Deficits Interventions Medication Use Education Disease Management Education Problem Area: Skin/Tissue Integrity Skin/Tissue Integrity Outcomes Demonstrate Understanding of Pressure Relief Skin/Tissue Integrity Interventions Pressure Relief Instruction Positioning/Turning Problem Area: Social Interaction Social Interaction Outcomes Social Interaction Interventions Problem Area: Adjustment to Disability Adjustment to Disability Outcomes Adjustment to Disability Interventions Problem Area: Discharge Concerns Discharge Concerns Outcomes Discharge Home w/ Necessary Equipment Have Home Health/Outpatient Services Discharge Concerns Interventions Discharge Planning Family/Caregiver Conference Family/Caregiver Training Problem Area: Community Reintegration Community Reintegration Outcomes Demonstrate Understanding of Community Resources Community Reintegration Interventions Provide Community Resources Problem Area: Home Management Home Management Outcomes Home Management Interventions Problem Area: Safety Safety Outcomes Provide Safe Environment Perform Selfcare Safely Demonstrate Good Safety w/ Transfers/Mobility Safety Interventions Identify Fall Risk [place] Pt. to Environment Reduce Environmental Hazards Problem Area: Medication Education Medication Education Outcomes Patient/Caregiver will Verbalize Understanding of Medications Medication Education Interventions Explain Administration/Side Effects/Interactions Problem Area: Diabetes Education Diabetes Education Outcomes Diabetes Education Interventions Problem Area: Oxygenation Oxygenation Outcomes Oxygenation Interventions Problem Area: Cardiovascular Cardiovascular Outcomes Cardiovascular Interventions Physician Only Medical Prognosis and Rehabilitation Good medical prognosis; good rehab potential Potential (Completed by Physician) This plan of care has been developed based on the findings from the pre- admission assessment, post admission physician evaluation, information gathered from the assessments from all therapy disciplines and other pertinent clinicians. The plan of care has been reviewed and discussed in collaboration with the interdisciplinary team. The plan of care will be reviewed and updated at least weekly. 46 year old male with recent severe ischemic episode of the right lower extremity requiring revascularization who later developed compartment syndrome and required fasciotomies; pt was readmitted and required debridement of the anterior compartment of right lower extremity including soft tissue and muscle, later right knee above knee amputation. Pt remains at risk for development of phantom pain, falls, constipation due to pain medication, depression, syncope. Pt has progressed well with therapies; pt is SBA for ADLs and transfers. Goals were for [place] prior to d/c, however, pt requesting d/c home. Pt recommended to complete family training with on today and will reassess for stability for d/c home after completed. Pt is medically stable.
--- NOTE | 2016-08-11 13:34 | Discharge Summary ---
Providers - Providers Date of Admission: 08/08/16 11:30 Date of discharge: 08/11/16 Attending physician: SALVADOR MORENO 08/08/16 13:07 Occupational Therapy Evaluate and Treat [CONS] Routine Comment: Reason For Exam: impaired ADLs Physical Therapy Evaluation and Treat [CONS] Routine Comment: Reason For Exam: Impaired Mobility Primary care physician: Dr. Eric Donovan Hospitalization Reason for admission: right AKA Condition: Stable Hospital course: 46 y.o. male with history of PVD and prior revascularization to RLE who initially presented in Jun 2016 to the [facility] ED secondary to worsening RLE pain and swelling. Pt was found to have an occlusive thrombus in RLE, taken for placement of thrombolytics catheter on 06/27/16; later required thrombectomy and angioplasty. Pt continued with RLE pain/swelling and numbness; course complicated by compartment syndrome requiring 4 part fasciotomy on 07/01/2016. Wound vac was placed and pt was discharged home (07/08/2016); briefly readmitted ( 07/10-07/14) due to uncontrolled pain. Pt again was readmitted on 08/04 due to noted necrotic muscle at the anterior compartment of right lower extremity and exposed fibula, which required debridement. Unfortunately, RLE was noted to be unsalvageable and pt was recommended for right AKA (08/05/2016). Once stable, pt was admitted to IRU for aggressive therapies and ongoing medical management. Pt has progressed well with therapies; pain is well controlled. Disposition: STILL A PATIENT Core Measure Documentation - Palliative Care Palliative Care/ Comfort Measures: Not Applicable - Core Measures Any of the following diagnoses?: none Exam - Constitutional Vitals: Temp Pulse Resp BP Pulse Ox 98.0 F 83 20 127/71 98 08/11/16 07:40 08/11/16 09:55 08/11/16 09:56 08/11/16 09:55 08/11/16 07:40 General appearance: Present: no acute distress, obese - EENT Eyes: Present: EOM intact ENT: hearing intact - Neck Neck: Present: supple, normal ROM - Respiratory Respiratory effort: normal Respiratory: bilateral: CTA - Cardiovascular Rhythm: regular Heart Sounds: Present: S1 & S2 - Extremities Extremity abnormal: other (right AKA) - Abdominal General gastrointestinal: Present: soft, non-tender, non-distended, normal bowel sounds - Psychiatric Psychiatric: appropriate mood/affect, intact judgment & insight, memory intact, cooperative - Neurologic Neurologic: CNII-XII intact, moves all extremities Plan Activity: no driving until cleared by PCP, fall precautions Diet: low fat, low cholesterol Wound: change dressing Special Instructions: record daily BP diary Durable Medical Equipment Needed Upon Discharge: other (already has recommended DME (RW, WC, bedside commode)) Follow up with: ERIC DONOVAN MD [Referring] - 7 Days ELMIRA PALMER MD [Staff Physician] - 08/12/16 10:30 am Prescriptions: cloNIDine [Catapres] 0.1 mg PO Q12H #60 tablet Clopidogrel [Plavix] 75 mg PO QDAY #30 tablet Gabapentin [Neurontin] 600 mg PO Q8HR #90 capsule HYDROcodone/APAP 5-325 [[place] 5-325 mg TAB] 1 each PO Q4H PRN #60 tablet PRN Reason: Pain, Moderate (4-6) Lisinopril [Zestril TAB] 20 mg PO DAILY #30 tablet
== END 2016-08-11 15:10 | disposition home or self-care (01) | DRG 301 ==
LOC: 3B 11:30
PROVIDERS: ADMIT Family Medicine; ATTEND Family Medicine
DX: I74.3 Embolism and thrombosis of arteries of the lower extremities (principal); I10 Essential (primary) hypertension; F17.200 Nicotine dependence, unspecified, uncomplicated; Z86.718 Personal history of other venous thrombosis and embolism; Z89.611 Acquired absence of right leg above knee
CPT/HCPCS: 36415; 80053; 81001; 85025; 87086; J1644

== ENCOUNTER 2016-10-11 09:00 | Inpatient (IN) | payer OTHER ==
[2016-10-11] MEDS ORDERED: HEPARIN 10,000 UNITS/10 ML IV ONE ×2 (09:39→18:00)
[2016-10-11 09:46] LABS: Basophils % (Auto) 0.5 % (0.0-1.8); Eosinophils % (Auto) 0.1 % (0.0-4.3); Hematocrit 48.6 % (35.5-45.6); Hemoglobin 16.1 gm/dl (11.8-15.2); Mean Corpuscular HGB Conc 33 % (32-34); Mean Corpuscular Hemoglobin 30 pg (28-32); Mean Corpuscular Volume 89 fl (84-94); Platelet Count 284 K/mm3 (140-440); Red Blood Count 5.47 M/mm3 (3.65-5.03); White Blood Count 17.3 K/mm3 (4.5-11.0)
[2016-10-11 09:56] LABS: INR 1.21 (0.87-1.13)
[2016-10-11 09:57] LABS: Partial Thromboplastin Time 27.5 Sec. (24.2-36.6)
[2016-10-11 10:03] LABS: Anion Gap 21 mmol/L; Blood Urea Nitrogen 14 mg/dL (9-20); Calcium 9.5 mg/dL (8.4-10.2); Carbon Dioxide 22 mmol/L (22-30); Chloride 97.1 mmol/L (98-107); Creatine Kinase 36 units/L (55-170); Glucose 129 mg/dL (75-100); Potassium 3.8 mmol/L (3.6-5.0); Sodium 136 mmol/L (137-145)
[2016-10-11 10:04] LABS: Albumin 3.9 g/dL (3.9-5); Albumin/Globulin Ratio 0.9 %; Bilirubin,Direct 0.2 mg/dL (0-0.2); Bilirubin,Indirect 0.4 mg/dL; Bilirubin,Total 0.6 mg/dL (0.1-1.2); Total Protein 8.1 g/dL (6.3-8.2)
[2016-10-11] MEDS: HEPARIN/ 0.45% NACL-25,000 UNIT/500 ML 25,000 UNIT/500 ML BAG IV SCH (10:09)
[2016-10-11] MEDS ORDERED: MORPHINE IV ONE ×2 (10:14→13:34)
[2016-10-11] MEDS ORDERED: ZOFRAN IV ONE (10:15)
[2016-10-11] MEDS ORDERED: ZOFRAN ONE (10:16)
[2016-10-11] MEDS: NACL 0.9% 1000 ML 1,000 ML IV SCH ×2 (10:32→23:13)
--- NOTE | 2016-10-11 10:36 | XRay Report ---
AP CHEST : 10/11/16 09:35 CLINICAL: Chest pain. COMPARISON:07/01/16 FINDINGS: The lungs are underexpanded. Bibasal subsegmental atelectasis. The heart and vasculature are normal given film technique.New opacification of the right costophrenic angle since the last exam. The upper lung carter are clear. The bones and soft tissues are unremarkable. IMPRESSION: Small right pleural effusion. Bibasal subsegmental atelectasis. No CHF or pneumonia.
--- NOTE | 2016-10-11 12:18 | Emergency Department Report ---
ED Chest Pain HPI - General Chief Complaint: Chest Pain Stated Complaint: RIGHT SIDE CHEST PAIN Time Seen by Provider: 10/11/16 09:34 Source: EMS Mode of arrival: Stretcher Limitations: Physical Limitation - History of Present Illness Initial Comments: Patient presents to the emergency department with a five-day history of right- sided chest pain. He states that it has been associated with cough and no hemoptysis. Cough is largely been nonproductive. At 2:00 this morning he became significantly dyspneic. Chest pain is pleuritic in nature. 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 This is the patient's first encounter with a medical provider. He states he does not have a prior history of blood clot in his lungs. MD Complaint: chest pain -: Gradual Onset: during rest Pain Location: right chest Pain Radiation: none Severity: moderate, severe Severity scale (0 -10): 0 Quality: aching Consistency: constant Improves With: nothing Worsens With: inspiration Context: other (history of DVT) re: denies: nausea, vomting Other Symptoms: cough Treatments Prior to Arrival: none Aspirin use within the Past 7 Days: (0) No - Related Data On Oral Contraceptives: No Previous Rx's Medication Instructions Recorded Last Taken Type Clopidogrel [Plavix] 75 mg PO QDAY #30 tablet 08/11/16 Unknown Rx Gabapentin [Neurontin] 600 mg PO Q8HR #90 capsule 08/11/16 Unknown Rx HYDROcodone/APAP 5-325 [[place] 1 each PO Q4H PRN #60 tablet 08/11/16 Unknown Rx 5-325 mg TAB] Lisinopril [Zestril TAB] 20 mg PO DAILY #30 tablet 08/11/16 Unknown Rx Multivitamin Tab [Multiple Vitamin 1 each PO QDAY tablet 08/11/16 Unknown Rx TAB (Theragran)] Allergies Allergy/AdvReac Type Severity Reaction Status Date / Time No Known Allergies Allergy Unverified 01/12/13 12:24 GAYATRI score - Gayatri Score Age > 65: (0) No Aspirin use within the Past 7 Days: (0) No 3 or more CAD Risk Factors: (0) No 2 or more Angina events in past 24 hrs: (0) No Known CAD with more than 50% Stenosis: (0) No Elevated Cardiac Markers: (0) No ST Deviation Greater than 0.5mm: (0) No GAYATRI Score: 0 ED Review of Systems ROS: Stated complaint: RIGHT SIDE CHEST PAIN Other details as noted in HPI Constitutional: denies: chills, fever Eyes: denies: eye pain, eye discharge, vision change ENT: denies: ear pain, throat pain Respiratory: cough, shortness of breath. denies: wheezing Cardiovascular: denies: chest pain, palpitations Endocrine: no symptoms reported Gastrointestinal: denies: abdominal pain, nausea, diarrhea Genitourinary: denies: urgency, dysuria Musculoskeletal: denies: back pain, joint swelling, arthralgia Skin: denies: rash, lesions Neurological: denies: headache, weakness, paresthesias Psychiatric: denies: anxiety, depression Hematological/Lymphatic: denies: easy bleeding, easy bruising ED Past Medical Hx - Past Medical History Hx Hypertension: Yes Hx Congestive Heart Failure: No Hx Diabetes: No Hx Renal Disease: Yes (Renal insufficiency) Hx Arthritis: Yes Hx Kidney Stones: Yes Hx Asthma: No Hx COPD: Yes (no home O2) Hx HIV: No Additional medical history: PAD. sleep apnea, DVT - Surgical History Additional Surgical History: Right lower extremity vascular surgery 2013 stents , 06/27/2016 RLL necrotic tissue with with current wound vac - Social History Smoking Status: Current Every Day Smoker Substance Use Type: None - Medications Home Medications: Home Medications Medication Instructions Recorded Confirmed Last Taken Type Clopidogrel [Plavix] 75 mg PO QDAY #30 tablet 08/11/16 10/11/16 Unknown Rx Gabapentin [Neurontin] 600 mg PO Q8HR #90 capsule 08/11/16 10/11/16 Unknown Rx HYDROcodone/APAP 5-325 [[place] 1 each PO Q4H PRN #60 tablet 08/11/16 10/11/16 Unknown Rx 5-325 mg TAB] Lisinopril [Zestril TAB] 20 mg PO DAILY #30 tablet 08/11/16 10/11/16 Unknown Rx Multivitamin Tab [Multiple Vitamin 1 each PO QDAY tablet 08/11/16 10/11/16 Unknown Rx TAB (Theragran)] ED Physical Exam - General Limitations: Physical Limitation General appearance: alert, in no apparent distress - Head Head exam: Present: atraumatic, normocephalic - Eye Eye exam: Present: normal appearance. Absent: scleral icterus - ENT ENT exam: Present: mucous membranes moist - Neck Neck exam: Present: normal inspection - Respiratory Respiratory exam: Present: decreased breath sounds (on the right side). Absent : respiratory distress, rales, rhonchi - Cardiovascular Cardiovascular Exam: Present: normal rhythm, tachycardia. Absent: systolic murmur, diastolic murmur, rubs, gallop - GI/Abdominal GI/Abdominal exam: Present: soft, normal bowel sounds. Absent: distended, tenderness, guarding, rebound, rigid - Rectal Rectal exam: Present: deferred - Extremities Exam Extremities exam: Present: other (good pulses left dorsalis pedis posterior tibial.). Absent: normal inspection (R BKA), pedal edema, joint swelling, calf tenderness - Back Exam Back exam: Present: normal inspection - Neurological Exam Neurological exam: Present: alert, oriented X3, CN II-XII intact. Absent: motor sensory deficit - Psychiatric Psychiatric exam: Present: normal affect, normal mood - Skin Skin exam: Present: warm, dry, intact, normal color. Absent: rash ED Course Vital Signs 10/11/16 10/11/16 10/11/16 09:14 10:15 11:18 Temperature 98.7 F 99 F Pulse Rate 122 H 110 H 101 H Respiratory 20 20 20 Rate Blood Pressure 137/96 Blood Pressure 134/83 125/78 [Right] O2 Sat by Pulse 97 97 98 Oximetry 10/11/16 10/11/16 10/11/16 12:48 13:30 15:00 Temperature 98.6 F 99.3 F Pulse Rate 108 H 110 H 115 H Respiratory 20 20 20 Rate Blood Pressure Blood Pressure 160/94 161/104 138/87 [Right] O2 Sat by Pulse 96 100 98 Oximetry - Reevaluation(s) Reevaluation #1: No reassessment patient remains hemodynamically stable. Admitted to hospitalist service. 10/11/16 14:16 Reevaluation #2: The patient was considered to be very high risk for pulmonary embolism. Therefore upon arrival he was treated empirically with standard bolus and dose heparin. After the CT was obtained radiologist raised the possibility of pneumonia. Therefore blood cultures were obtained and Levaquin was started. The patient was admitted to the hospitalist service. I will recommend ICU placement. 10/11/16 15:49 ED Medical Decision Making - Lab Data Result diagrams: 10/11/16 09:34 10/11/16 09:34 Laboratory Results - last 24 hr 10/11/16 10/11/16 10/11/16 09:34 09:34 09:34 WBC 17.3 H RBC 5.47 H Hgb 16.1 H Hct 48.6 H MCV 89 MCH 30 MCHC 33 RDW 17.0 H Plt Count 284 Lymph % (Auto) 8.1 L Saline % (Auto) 11.7 H Eos % (Auto) 0.1 Baso % (Auto) 0.5 Lymph # 1.4 Saline # 2.0 H Eos # 0.0 Baso # 0.1 Seg Neutrophils % 79.6 H Seg Neutrophils # 13.7 H PT 15.2 H INR 1.21 H APTT 27.5 Sodium 136 L Potassium 3.8 Chloride 97.1 L Carbon Dioxide 22 Anion Gap 21 BUN 14 Creatinine 0.7 L Estimated GFR > 60 BUN/Creatinine Ratio 20.00 Glucose 129 H Lactic Acid Calcium 9.5 Total Bilirubin Direct Bilirubin Indirect Bilirubin AST ALT Alkaline Phosphatase Total Creatine Kinase 36 L CK-MB (CK-2) Rel Index 2.7 Troponin T < 0.010 NT-Pro-B Natriuret Pep Total Protein Albumin Albumin/Globulin Ratio Blood Type Antibody Screen SHAYNA Antibody Screen 10/11/16 10/11/16 10/11/16 09:41 09:41 09:41 WBC RBC Hgb Hct MCV MCH MCHC RDW Plt Count Lymph % (Auto) Saline % (Auto) Eos % (Auto) Baso % (Auto) Lymph # Saline # Eos # Baso # Seg Neutrophils % Seg Neutrophils # PT INR APTT Sodium Potassium Chloride Carbon Dioxide Anion Gap BUN Creatinine Estimated GFR BUN/Creatinine Ratio Glucose Lactic Acid 1.20 Calcium Total Bilirubin 0.60 Direct Bilirubin 0.2 Indirect Bilirubin 0.4 AST 21 ALT 19 Alkaline Phosphatase 98 Total Creatine Kinase CK-MB (CK-2) Rel Index Troponin T NT-Pro-B Natriuret Pep 934.9 H Total Protein 8.1 Albumin 3.9 Albumin/Globulin Ratio 0.9 Blood Type Antibody Screen SHAYNA Antibody Screen 10/11/16 09:44 WBC RBC Hgb Hct MCV MCH MCHC RDW Plt Count Lymph % (Auto) Saline % (Auto) Eos % (Auto) Baso % (Auto) Lymph # Saline # Eos # Baso # Seg Neutrophils % Seg Neutrophils # PT INR APTT Sodium Potassium Chloride Carbon Dioxide Anion Gap BUN Creatinine Estimated GFR BUN/Creatinine Ratio Glucose Lactic Acid Calcium Total Bilirubin Direct Bilirubin Indirect Bilirubin AST ALT Alkaline Phosphatase Total Creatine Kinase CK-MB (CK-2) Rel Index Troponin T NT-Pro-B Natriuret Pep Total Protein Albumin Albumin/Globulin Ratio Blood Type AB POSITIVE Antibody Screen TNR SHAYNA Antibody Screen Negative Laboratory Results - last 24 hr 10/11/16 10/11/16 10/11/16 09:34 09:34 09:34 WBC 17.3 H RBC 5.47 H Hgb 16.1 H Hct 48.6 H MCV 89 MCH 30 MCHC 33 RDW 17.0 H Plt Count 284 Lymph % (Auto) 8.1 L Saline % (Auto) 11.7 H Eos % (Auto) 0.1 Baso % (Auto) 0.5 Lymph # 1.4 Saline # 2.0 H Eos # 0.0 Baso # 0.1 Seg Neutrophils % 79.6 H Seg Neutrophils # 13.7 H PT 15.2 H INR 1.21 H APTT 27.5 Sodium 136 L Potassium 3.8 Chloride 97.1 L Carbon Dioxide 22 Anion Gap 21 BUN 14 Creatinine 0.7 L Estimated GFR > 60 BUN/Creatinine Ratio 20.00 Glucose 129 H Lactic Acid Calcium 9.5 Total Bilirubin Direct Bilirubin Indirect Bilirubin AST ALT Alkaline Phosphatase Total Creatine Kinase 36 L CK-MB (CK-2) Rel Index 2.7 Troponin T < 0.010 NT-Pro-B Natriuret Pep Total Protein Albumin Albumin/Globulin Ratio Blood Type Antibody Screen SHAYNA Antibody Screen 10/11/16 10/11/16 10/11/16 09:41 09:41 09:41 WBC RBC Hgb Hct MCV MCH MCHC RDW Plt Count Lymph % (Auto) Saline % (Auto) Eos % (Auto) Baso % (Auto) Lymph # Saline # Eos # Baso # Seg Neutrophils % Seg Neutrophils # PT INR APTT Sodium Potassium Chloride Carbon Dioxide Anion Gap BUN Creatinine Estimated GFR BUN/Creatinine Ratio Glucose Lactic Acid 1.20 Calcium Total Bilirubin 0.60 Direct Bilirubin 0.2 Indirect Bilirubin 0.4 AST 21 ALT 19 Alkaline Phosphatase 98 Total Creatine Kinase CK-MB (CK-2) Rel Index Troponin T NT-Pro-B Natriuret Pep 934.9 H Total Protein 8.1 Albumin 3.9 Albumin/Globulin Ratio 0.9 Blood Type Antibody Screen SHAYNA Antibody Screen 10/11/16 09:44 WBC RBC Hgb Hct MCV MCH MCHC RDW Plt Count Lymph % (Auto) Saline % (Auto) Eos % (Auto) Baso % (Auto) Lymph # Saline # Eos # Baso # Seg Neutrophils % Seg Neutrophils # PT INR APTT Sodium Potassium Chloride Carbon Dioxide Anion Gap BUN Creatinine Estimated GFR BUN/Creatinine Ratio Glucose Lactic Acid Calcium Total Bilirubin Direct Bilirubin Indirect Bilirubin AST ALT Alkaline Phosphatase Total Creatine Kinase CK-MB (CK-2) Rel Index Troponin T NT-Pro-B Natriuret Pep Total Protein Albumin Albumin/Globulin Ratio Blood Type AB POSITIVE Antibody Screen TNR SHAYNA Antibody Screen Negative - EKG Data -: EKG Interpreted by Me EKG shows normal: sinus rhythm Rate: tachycardia - EKG Data Interpretation: other (left axis deviation. ST depression in the anterolateral leads consider ischemia possible left anterior fascicular block.) - Radiology Data Radiology results: report reviewed interpreted by me: Bilateral atelectasis. Right pleural effusion. On chest x-ray. CT angiogram was positive for a large right main pulmonary thrombosis. There was also consolidating infiltrate which may be consistent with pneumonia and pleural effusion. Pulmonary infarction is also likely. Critical Care Time: Yes Critical care time in (mins) excluding proc time.: 60 Critical care attestation.: If time is entered above; I have spent that time in minutes in the direct care of this critically ill patient, excluding procedure time. ED Disposition Clinical Impression: Pulmonary infarction Pulmonary embolism Qualifiers: Pulmonary embolism type: other Chronicity: acute Acute cor pulmonale presence: without acute cor pulmonale Qualified Code(s): I26.99 - Other pulmonary embolism without acute cor pulmonale Disposition: OP ADMIT IP TO THIS HOSP Is pt being admited?: Yes Does the pt Need Aspirin: Yes Condition: Stable Referrals: PRIMARY CARE, [Primary Care Provider] - 3-5 Days Time of Disposition: 15:51
--- NOTE | 2016-10-11 13:31 | Cat Scan Report ---
CT CHEST WITH CONTRAST: 10/11/16 12:15:00 CLINICAL: Hypoxia and chest pain. TECHNIQUE: PE protocol with volumetric acquisition and 1.25 mm scan reconstructions after the uneventful intravenous injection of 100 cc Omnipaque 350. Consent was obtained prior to the administration of contrast. FINDINGS: Good opacification of the pulmonary arteries and a large thrombus is identified in the right pulmonary artery and it extends into right upper lobe and right middle lobe and right lower lobe arteries. Right middle lobe and right lower lobe peripheral airspace disease with consolidation. There is a small right pleural effusion. Moderately severe multilobar emphysema with greater involvement of the upper lobes. Mild lingular subsegmental atelectasis. The heart is normal size with a relatively thick ventricular septum and a thickwalled left ventricle. The aorta is normal. Normal lungs and mediastinum. Normal thyroid, trachea and esophagus. The upper abdomen is remarkable for a hypodense liver consistent with hepatic steatosis. The bones and soft tissues are normal. IMPRESSION: 1. Positive study for pulmonary embolus and relatively large burden of thrombus in right pulmonary arteries. 2. Right middle lobe and right lower lobe peripheral airspace disease may indicate infarcts. 3. Small right pleural effusion. 4. COPD. 5. Hepatic steatosis. Verbal report was given to in the emergency department at 1325 on 10/11/16. ALYSON LOUIE
[2016-10-11] MEDS ORDERED: LEVAQUIN 750MG/150ML 750 MG/150 ML BAG IV ONE (13:32)
[2016-10-11] MEDS ORDERED: MORPHINE ONE (13:34)
--- NOTE | 2016-10-11 14:28 | History and Physical Report ---
History of Present Illness Chief complaint: My chest hurts right here when i breathe History of present illness: 46 YO Male with HTN, OA, COPD, DVT, Nicotine Dependence, PAD, JENNIFER presents to ED for evaluation. Pt states that he has been experiencing pain in the right side of his chest. Pain is 8/10, pleuritic, worse with deep breathing, and alleviated with shallow breathing. Pt denies fever, chills, palpitations, NVD, productive cough, hemoptysis, syncope, recent ill contacts, leg swelling, calf pain, unintentional weight loss, or night sweats. Past History Past Medical History: COPD, DVT, hypertension Past Surgical History: Other (RLE Stent, Right BKA, ) Social history: , lives with family, smoking. denies: alcohol abuse, prescription drug abuse, IV drug use Family history: hypertension Medications and Allergies Allergies Allergy/AdvReac Type Severity Reaction Status Date / Time No Known Allergies Allergy Unverified 01/12/13 12:24 Home Medications Medication Instructions Recorded Confirmed Last Taken Type Clopidogrel [Plavix] 75 mg PO QDAY #30 tablet 08/11/16 10/11/16 Unknown Rx Gabapentin [Neurontin] 600 mg PO Q8HR #90 capsule 08/11/16 10/11/16 Unknown Rx HYDROcodone/APAP 5-325 [[place] 1 each PO Q4H PRN #60 tablet 08/11/16 10/11/16 Unknown Rx 5-325 mg TAB] Lisinopril [Zestril TAB] 20 mg PO DAILY #30 tablet 08/11/16 10/11/16 Unknown Rx Multivitamin Tab [Multiple Vitamin 1 each PO QDAY tablet 08/11/16 10/11/16 Unknown Rx TAB (Theragran)] Active Meds: Active Medications Heparin Sodium/Sodium Chloride (Heparin/ 0.45% Nacl-25,000 Unit/500 Ml) 25,000 unit in 500 mls @ 29 mls/hr IV TITR DAGMAR; 1,450 UNITS/HR PRN Reason: Protocol Last Admin: 10/11/16 10:09 Dose: 1,450 units/hr, 29 mls/hr Sodium Chloride (Nacl 0.9% 1000 Ml) 1,000 mls @ 125 mls/hr IV DIRECT DAGMAR Last Admin: 10/11/16 10:32 Dose: 125 mls/hr Levofloxacin/Dextrose (Levaquin 750mg/150ml) 750 mg in 150 mls @ 100 mls/hr IV ONCE ONE PRN Reason: Protocol Stop: 10/11/16 15:01 Review of Systems All systems: negative Respiratory: shortness of breath Exam - Constitutional Vitals: Temp Pulse Resp BP Pulse Ox 98.6 F 110 H 20 161/104 100 10/11/16 12:48 10/11/16 13:30 10/11/16 13:30 10/11/16 13:30 10/11/16 13:30 General appearance: Present: severe distress - EENT Eyes: Present: PERRL ENT: hearing intact, clear oral mucosa - Neck Neck: Present: supple, normal ROM - Respiratory Respiratory effort: labored Respiratory: right: diminished - Cardiovascular Rhythm: other (tachycardic) Heart Sounds: Present: S1 & S2. Absent: rub, click - Extremities Extremities: pulses symmetrical, No edema Peripheral Pulses: within normal limits - Abdominal General gastrointestinal: Present: soft, non-tender, non-distended, normal bowel sounds Male genitourinary: Present: normal - Integumentary Integumentary: Present: clear, warm, dry - Musculoskeletal Musculoskeletal: generalized weakness - Psychiatric Psychiatric: appropriate mood/affect, intact judgment & insight, agitated - Neurologic Neurologic: CNII-XII intact, no gait normal Results - Labs CBC & Chem 7: 10/11/16 18:10 10/11/16 09:34 Labs: Abnormal lab results 10/11/16 10/11/16 10/11/16 Range/Units 09:34 09:34 09:34 WBC 17.3 H (4.5-11.0) K/mm3 RBC 5.47 H (3.65-5.03) M/mm3 Hgb 16.1 H (11.8-15.2) gm/dl Hct 48.6 H (35.5-45.6) % RDW 17.0 H (13.2-15.2) % Lymph % (Auto) 8.1 L (13.4-35.0) % Daniels % (Auto) 11.7 H (0.0-7.3) % Daniels # 2.0 H (0.0-0.8) K/mm3 Seg Neutrophils % 79.6 H (40.0-70.0) % Seg Neutrophils # 13.7 H (1.8-7.7) K/mm3 PT 15.2 H (12.2-14.9) Sec. INR 1.21 H (0.87-1.13) Sodium 136 L (137-145) mmol/L Chloride 97.1 L (98-107) mmol/L Creatinine 0.7 L (0.8-1.5) mg/dL Glucose 129 H (75-100) mg/dL Total Creatine Kinase 36 L (55-170) units/L NT-Pro-B Natriuret Pep (0-450) pg/mL 10/11/16 Range/Units 09:41 WBC (4.5-11.0) K/mm3 RBC (3.65-5.03) M/mm3 Hgb (11.8-15.2) gm/dl Hct (35.5-45.6) % RDW (13.2-15.2) % Lymph % (Auto) (13.4-35.0) % Daniels % (Auto) (0.0-7.3) % Daniels # (0.0-0.8) K/mm3 Seg Neutrophils % (40.0-70.0) % Seg Neutrophils # (1.8-7.7) K/mm3 PT (12.2-14.9) Sec. INR (0.87-1.13) Sodium (137-145) mmol/L Chloride (98-107) mmol/L Creatinine (0.8-1.5) mg/dL Glucose (75-100) mg/dL Total Creatine Kinase (55-170) units/L NT-Pro-B Natriuret Pep 934.9 H (0-450) pg/mL Assessment and Plan - Patient Problems (1) Acute respiratory failure Current Visit: Yes Status: Acute Qualifiers: Respiratory failure complication: R Plan to address problem: supplemental oxygen, nebs, aspiration precautions, supportive care, pain control The high probability of a clinically significant, sudden or life threatening deterioration of the [pulmonary, cardiac, renal] system(s) required my full and direct attention, intervention and personal management. The aggregate critical care time was [65] minutes. This time is in addition to time spent performing reported procedures but includes the following: [x] Data Review and interpretation [x] Patient assessment and monitoring of vital signs [x] Documentation [x] Medication orders and management (2) Pulmonary embolism Current Visit: Yes Status: Acute Qualifiers: Pulmonary embolism type: other Chronicity: acute Acute cor pulmonale presence: without acute cor pulmonale Qualified Code(s): I26.99 - Other pulmonary embolism without acute cor pulmonale Plan to address problem: IR consulted for ekos therapy, Heparin drip, supplemental oxygen, nebs, (3) Hypertension Current Visit: No Status: Chronic Qualifiers: Hypertension type: essential hypertension Qualified Code(s): I10 - Essential (primary) hypertension Plan to address problem: monitor bp q shift, (4) Nicotine dependence Current Visit: Yes Status: Acute Qualifiers: Nicotine product type: N Substance use status: S Plan to address problem: Pt counseled, continue supportive care. (5) Acute renal failure (ARF) Current Visit: Yes Status: Acute Qualifiers: Acute renal failure type: A Plan to address problem: IVF, supportive care, monitor uop q shift (6) DVT prophylaxis Current Visit: Yes Status: Acute
[2016-10-11] MEDS ORDERED: MILK OF MAGNESIA PO PRN (15:45)
[2016-10-11] MEDS ORDERED: DULCOLAX PR PRN (15:45)
[2016-10-11] MEDS ORDERED: ZOFRAN IV PRN (15:45)
[2016-10-11] MEDS ORDERED: BABY ASPIRIN PO ONE (15:52)
[2016-10-11 16:00] LABS: Bilirubin,Urine NEG (Negative); Blood,Urine LG (Negative); Ketones,Urine NEG (Negative); Leukocyte Esterase,Urine NEG (Negative); Mucus,Urine 3+ /HPF; Nitrite,Urine NEG (Negative); RBC,Urine > 182.0 /HPF (0.0-6.0); Urobilinogen,Urine < 2.0 mg/dL (<2.0)
[2016-10-11] MEDS ORDERED: MORPHINE IV PRN (16:20)
[2016-10-11 18:27] LABS: Hematocrit 46.6 % (35.5-45.6); Hemoglobin 15.1 gm/dl (11.8-15.2)
[2016-10-11] MEDS ORDERED: HEPARIN/ 0.45% NACL-25,000 UNIT/500 ML 25,000 UNIT/500 ML BAG ONE ×2 (18:37→18:39)
[2016-10-11] MEDS ORDERED: SUBLIMAZE ONE (18:37)
[2016-10-11] MEDS ORDERED: NACL 0.9% 1000 ML 1,000 ML ONE ×2 (18:37→18:39)
[2016-10-11] MEDS ORDERED: VERSED ONE (18:37)
[2016-10-11] MEDS ORDERED: HEPARIN/NS 5000 UNIT/500ML(CATH LAB) 1,000 ML IR ONE (18:37)
[2016-10-11] MEDS ORDERED: ANCEF/STERILE WATER 2 GM/20 ML 2 GM/20 ML SYRINGE IV ONE (18:38)
[2016-10-11] MEDS ORDERED: WATER FOR INJ (PF) 10 ML ONE (18:41)
[2016-10-11] MEDS ORDERED: CATHFLO ONE (18:41)
[2016-10-11 18:42] LABS: INR 1.21 (0.87-1.13); Partial Thromboplastin Time 33.4 Sec. (24.2-36.6)
[2016-10-11] MEDS ORDERED: NACL 0.9% 500 ML 500 ML ONE (19:00)
[2016-10-11] MEDS: XYLOCAINE 2% INFILTRATI ONE ×2 (19:11→19:25)
[2016-10-11] MEDS: HEPARIN 10,000 UNITS/10 ML ONE ×2 (19:30→20:00)
[2016-10-11] MEDS ORDERED: NACL 0.9% 1000 ML 1,000 ML EKOSCLUMEN SCH (20:00)
[2016-10-11] MEDS ORDERED: NACL 0.9% 1000 ML 1,000 ML SHEATH SCH (20:00)
[2016-10-11] MEDS ORDERED: CATHFLO 20 MG in NACL 0.9% 500 ML 500 ML EKOSDLUMEN SCH (20:00)
[2016-10-11] MEDS ORDERED: HEPARIN/ 0.45% NACL-25,000 UNIT/500 ML 25,000 UNIT/500 ML BAG SHEATH SCH (20:00)
--- NOTE | 2016-10-11 20:26 | Operative Report ---
Operative Report Operative Report: Procedure: 1. Ultrasound-guided access of the right common femoral vein. 2. Pulmonary angiography 3. Selective right pulmonary angiography. 4. Placement of right pulmonary artery EKos ultrasonic infusion catheter. Date of procedure: 10/11/2016 Physician: Bart Recinos MD Indication: This is a 46-year-old male who experienced a sudden onset of shortness of breath and chest pain. CTA demonstrated a large occlusive right main PE. In the ER the patient was experiencing increasing tachypnea, tachycardia, and SOB. Procedure: The patient was placed in the supine position and prepped and draped in the usual sterile fashion. A timeout was performed. Local anesthesia was administered. Under continuous ultrasound guidance, the right common femoral vein was cannulated with an 18-gauge needle. This was exchanged over Buckner wire for a 6 Amharic vascular sheath. A combination of a 5Fr pigtail flush catheter and Buckner wire was advanced into the right ventricle and ultimately used to select the main pulmonary artery. Angiography was performed. The pigtail was replaced with a JR4 catheter, which was then maneuvered into the right main PA. Angiography was again performed. The JR 4 catheter was then replaced with the EKos IDDC catheter. The microsonic delivery catheter was then inserted and secured. The vascular sheath and IDDC catheter was secured to the skin and to each other with 2-0 Ethilon suture. 4 mg of tPA were infused as a bolus into the catheter. Sterile dressings were applied, and the patient was transferred off the table in stable condition. Findings: Pulmonary arteriography demonstrates multiple, large filling defects in the right main PA, extending into the segmental branches. This is consistent with findings on recent CT angiography from earlier today. There is successful placement of an EKos catheter in the right pulmonary arteries
[2016-10-11] MEDS ORDERED: NEURONTIN PO SCH (22:00)
[2016-10-11] MEDS: MORPHINE IV PRN (22:58)
[2016-10-12] MEDS: PEPCID PO SCH ×3 (01:01→21:20)
[2016-10-12] MEDS: MORPHINE IV PRN ×2 (03:01→07:32)
[2016-10-12] MEDS: NACL 0.9% 1000 ML 1,000 ML IV SCH ×2 (07:36→16:34)
[2016-10-12] MEDS: THERAGRAN Tab PO SCH (09:23)
[2016-10-12] MEDS: PLAVIX PO SCH (09:24)
[2016-10-12] MEDS: NEURONTIN PO SCH ×2 (09:24→18:32)
[2016-10-12] MEDS: ZESTRIL PO SCH (09:25)
--- NOTE | 2016-10-12 11:10 | Event Note ---
Date: 10/12/16 Mr. Burt states that his central chest pain is resolved, but his main complaint at this time is severe right lower pleuritic chest pain. He remains hypertensive and tachycardic. He is satting between 96 and 100% on 2 L nasal cannula. I removed his right pulmonary artery Ekos catheter at the bedside. His pleuritic chest pain is most likely from pulmonary infarction, as documented on recent CT scan. I have discussed his care with the critical care team with regards to hypertension, pleurisy, and other pulmonary issues. The patient should be maintained on a heparin drip until an oral anticoagulation regimen has been determined.
[2016-10-12] MEDS: HEPARIN/ 0.45% NACL-25,000 UNIT/500 ML 25,000 UNIT/500 ML BAG IV SCH (11:42)
--- NOTE | 2016-10-12 13:44 | Consultation ---
History of Present Illness Consult date: 10/12/16 Requesting physician: MORRO STEWARD Reason for consult: COPD, hypoxemia History of present illness: 46 y/o male, previously admitted to the hospital for almost 90 days, discharged in August, admitted last night with chest pain and shortness of breath. Found to have large PE on the right. Had EKOS done last night and catheters removed this am. Patient continues to be tachycardic. Had fever last night as well. CTA shows emphysema of the upper lobes and a right lower lobe infiltrate. Maybe inside of an bleb. Patient is somewhat sleepy. Has received pain meds. Snoring. Family at bedside. Past History Past Medical History: COPD, DVT, hypertension Past Surgical History: Other (RLE Stent, Right BKA, ) Social history: , lives with family, smoking. denies: alcohol abuse, prescription drug abuse, IV drug use Family history: hypertension Medications and Allergies Allergies Allergy/AdvReac Type Severity Reaction Status Date / Time No Known Allergies Allergy Unverified 01/12/13 12:24 Home Medications Medication Instructions Recorded Confirmed Last Taken Type Clopidogrel [Plavix] 75 mg PO QDAY #30 tablet 08/11/16 10/11/16 Unknown Rx Gabapentin [Neurontin] 600 mg PO Q8HR #90 capsule 08/11/16 10/11/16 Unknown Rx HYDROcodone/APAP 5-325 [[place] 1 each PO Q4H PRN #60 tablet 08/11/16 10/11/16 Unknown Rx 5-325 mg TAB] Lisinopril [Zestril TAB] 20 mg PO DAILY #30 tablet 08/11/16 10/11/16 Unknown Rx Multivitamin Tab [Multiple Vitamin 1 each PO QDAY tablet 08/11/16 10/11/16 Unknown Rx TAB (Theragran)] Active Meds: Active Medications Acetaminophen (Tylenol) 650 mg PO Q4H PRN PRN Reason: Pain MILD(1-3)/Fever >100.5/[place] Acetaminophen/Hydrocodone Bitart ([place] 5/325) 1 each PO Q4H PRN PRN Reason: Pain, Moderate (4-6) Bisacodyl (Dulcolax) 10 mg [place] QDAY PRN PRN Reason: Constipation unrelieved by MOM Clopidogrel Bisulfate (Plavix) 75 mg PO QDAY DAGMAR Last Admin: 10/12/16 09:24 Dose: 75 mg Famotidine (Pepcid) 20 mg PO BID [facility] Last Admin: 10/12/16 09:24 Dose: 20 mg Gabapentin (Neurontin) 600 mg PO Q8H [facility] Last Admin: 10/12/16 09:24 Dose: 600 mg Heparin Sodium/Sodium Chloride (Heparin/ 0.45% Nacl-25,000 Unit/500 Ml) 25,000 unit in 500 mls @ 29 mls/hr IV TITR DAGMAR; 1,450 UNITS/HR PRN Reason: Protocol Last Admin: 10/12/16 11:42 Dose: 1,700 units/hr, 34 mls/hr Sodium Chloride (Nacl 0.9% 1000 Ml) 1,000 mls @ 125 mls/hr IV DIRECT [facility] Last Admin: 10/12/16 07:36 Dose: 125 mls/hr Lisinopril (Zestril) 20 mg PO DAILY [facility] Last Admin: 10/12/16 09:25 Dose: 20 mg Magnesium Hydroxide (Milk Of Magnesia) 30 ml PO Q4H PRN PRN Reason: Constipation Morphine Sulfate (Morphine) 1 mg IV Q3H PRN PRN Reason: Pain, Moderate (4-6) Last Admin: 10/12/16 07:32 Dose: 1 mg Multivitamins (Theragran Tab) 1 each PO QDAY [facility] Last Admin: 10/12/16 09:23 Dose: 1 each Ondansetron HCl (Zofran) 4 mg IV Q8H PRN PRN Reason: N/V unrelieved by Reglan Review of Systems All systems: negative Physical Examination Vital signs: Vital Signs Pulse Ox 97 10/11/16 09:05 General appearance: no acute distress, alert Eyes: non-icteric ENT: oropharynx dry Neck: supple Effort: normal Ascultation: Bilateral: wheezes Percussion: Bilateral: not dull Tactile fremitus: Bilateral: normal Cardiovascular: regular rate and rhythm (sinus tachycardia) Gastrointestinal: normoactive bowel sounds, soft, non-tender Integumentary: normal Extremities: other (right AKA) Musculoskeletal: other (as stated above) normal mental status Results - Laboratory Findings CBC and BMP: 10/11/16 18:10 10/11/16 09:34 PT/INR, D-dimer PT 15.2 Sec. (12.2-14.9) H 10/11/16 18:10 INR 1.21 (0.87-1.13) H 10/11/16 18:10 Abnormal lab findings: Abnormal Labs 10/11/16 10/11/16 10/11/16 16:17 18:10 18:10 Hct 46.6 H PT 15.2 H INR 1.21 H Heparin Anti-Xa Level < 0.10 L - Diagnostic Findings CT scan - chest: image reviewed Assessment and Plan 46 y/o male with acute PE 1. Continue Heparin drip 2. 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 Will add q6hour steroids and Pulmicort and brovana. Per patient he was told he does not have sleep apnea by other group during last stay. Asked other group if they wanted to continue to follow and they declined. Added PRN duonebs as well. 3. Will order bipap PRN given degree of COPD seen on CT and clot burden with possible pneumonia. 4. Patient has been hospitalized in the last 90 days. Need to change coverage to HCAP. Woud add Zosyn and Vancomycin. 5. Also needs labs today. 6. Smoking cessation 7. Likely needs outpatient sleep study and therapy for COPD. Can follow up with Dr. Hanks 8. Will obtain 12 lead EKG to confirm sinus 9. Needs better BP control. Will give lasix as well. Thank you for this consult, will continue to follow along with you.
[2016-10-12] MEDS ORDERED: DUONEB 0.5 MG-3 MG/3 ML SOLN IH PRN (14:07)
[2016-10-12] MEDS ORDERED: PROVENTIL IH PRN (14:13)
[2016-10-12] MEDS ORDERED: LASIX IV ONE (14:15)
--- NOTE | 2016-10-12 16:09 | Progress Note ---
Assessment and Plan Assessment and plan: Patient is a 46-year-old man with history of COPD, DVT, hypertension and peripheral vascular disease status post right AKA who presents with chest pain and shortness of breath. He was found to have a large right main PE s/p EKOS thrombolysis done last night and catheter removed this a.m 10/12/2016. He continues to be tachycardic and had fever overnight as well. -Acute hypoxic respiratory failure due to PE: Treated with oxygen -Acute Cor pulmonale with right heart strain due to PE status thrombolysis: Echocardiogram pending -Acute right PE: Treated with IV heparin -COPD: Pulmonology following -Sirs due to PE with leukocytosis, tachycardia, tachypnea -DVT prophylaxis: Heparin drip History Interval history: Patient seen and examined. Follow up on shortness of breath which still present but improved from yesterday. The chest pains also improved. Overnight uneventful. No n/v or severe headaches. Imaging, old records, testing, labs, nursing notes reviewed. Hospitalist Physical - Physical exam Narrative exam: GEN: Ill-appearing diaphoretic NAD, AWAKE, ALERT, ORIENTATED x 3 HEENT: NCAT, PERRL, EOMI, OP CLEAR NECK: SUPPLE, NO THYROMEGALY, NO JVD, NO LAD CVS: Heart is tachycardic NORMAL S1S2 LUNGS/CHEST: Fine inspiratory crackles bilaterally, NORMAL CHEST EXPANSION B, GOOD AIR ENTRY B ABD: SOFT, NTND, GBS, NO REBOUND OR GUARDING EXT/SKIN: NO SIGNIFICANT EDEMA OR RASH MSK: Right AKA NEURO: CN 2-12 GROSSLY INTACT, NO FOCAL DEFICITS PSY: CALM - Constitutional Vitals: Temp Pulse Resp BP Pulse Ox 99.7 F H 123 H 20 164/95 97 10/12/16 12:00 10/12/16 15:00 10/12/16 15:00 10/12/16 15:00 10/12/16 15:00 General appearance: Absent: severe distress Results - Labs CBC & Chem 7: 10/11/16 18:10 10/11/16 09:34 Labs: Laboratory Last Values WBC 17.3 K/mm3 (4.5-11.0) H 10/11/16 09:34 RBC 5.47 M/mm3 (3.65-5.03) H 10/11/16 09:34 Hgb 15.1 gm/dl (11.8-15.2) 10/11/16 18:10 Hct 46.6 % (35.5-45.6) H 10/11/16 18:10 MCV 89 fl (84-94) 10/11/16 09:34 MCH 30 pg (28-32) 10/11/16 09:34 MCHC 33 % (32-34) 10/11/16 09:34 RDW 17.0 % (13.2-15.2) H 10/11/16 09:34 Plt Count 253 K/mm3 (140-440) 10/11/16 18:10 Lymph % (Auto) 8.1 % (13.4-35.0) L 10/11/16 09:34 [place] % (Auto) 11.7 % (0.0-7.3) H 10/11/16 09:34 Eos % (Auto) 0.1 % (0.0-4.3) 10/11/16 09:34 Baso % (Auto) 0.5 % (0.0-1.8) 10/11/16 09:34 Lymph # 1.4 K/mm3 (1.2-5.4) 10/11/16 09:34 [place] # 2.0 K/mm3 (0.0-0.8) H 10/11/16 09:34 Eos # 0.0 K/mm3 (0.0-0.4) 10/11/16 09:34 Baso # 0.1 K/mm3 (0.0-0.1) 10/11/16 09:34 Seg Neutrophils % 79.6 % (40.0-70.0) H 10/11/16 09:34 Seg Neutrophils # 13.7 K/mm3 (1.8-7.7) H 10/11/16 09:34 PT 15.2 Sec. (12.2-14.9) H 10/11/16 18:10 INR 1.21 (0.87-1.13) H 10/11/16 18:10 APTT 33.4 Sec. (24.2-36.6) 10/11/16 18:10 Heparin Anti-Xa Level < 0.10 U.I./ml (0.3-0.7) L 10/11/16 16:17 Sodium 136 mmol/L (137-145) L 10/11/16 09:34 Potassium 3.8 mmol/L (3.6-5.0) 10/11/16 09:34 Chloride 97.1 mmol/L (98-107) L 10/11/16 09:34 Carbon Dioxide 22 mmol/L (22-30) 10/11/16 09:34 Anion Gap 21 mmol/L 10/11/16 09:34 BUN 14 mg/dL (9-20) 10/11/16 09:34 Creatinine 0.7 mg/dL (0.8-1.5) L 10/11/16 09:34 Estimated GFR > 60 ml/min 10/11/16 09:34 BUN/Creatinine Ratio 20.00 % 10/11/16 09:34 Glucose 129 mg/dL (75-100) H 10/11/16 09:34 Lactic Acid 1.20 mmol/L (0.7-2.0) 10/11/16 09:41 Calcium 9.5 mg/dL (8.4-10.2) 10/11/16 09:34 Total Bilirubin 0.60 mg/dL (0.1-1.2) 10/11/16 09:41 Direct Bilirubin 0.2 mg/dL (0-0.2) 10/11/16 09:41 Indirect Bilirubin 0.4 mg/dL 10/11/16 09:41 AST 21 units/L (5-40) 10/11/16 09:41 ALT 19 units/L (7-56) 10/11/16 09:41 Alkaline Phosphatase 98 units/L (35-129) 10/11/16 09:41 Total Creatine Kinase 36 units/L (55-170) L 10/11/16 09:34 CK-MB (CK-2) Rel Index 2.7 (0-4) 10/11/16 09:34 Troponin T < 0.010 ng/mL (0.00-0.029) 10/11/16 09:34 NT-Pro-B Natriuret Pep 934.9 pg/mL (0-450) H 10/11/16 09:41 Total Protein 8.1 g/dL (6.3-8.2) 10/11/16 09:41 Albumin 3.9 g/dL (3.9-5) 10/11/16 09:41 Albumin/Globulin Ratio 0.9 % 10/11/16 09:41 Urine Color [place] (Yellow) 10/11/16 15:36 Urine Turbidity Slightly-cloudy (Clear) 10/11/16 15:36 Urine pH 5.0 (5.0-7.0) 10/11/16 15:36 Urine Protein 100 mg/dl mg/dL (Negative) 10/11/16 15:36 Urine Glucose (UA) 50 mg/dL (Negative) 10/11/16 15:36 Urine Ketones Neg mg/dL (Negative) 10/11/16 15:36 Urine Blood Lg (Negative) 10/11/16 15:36 Urine Nitrite Neg (Negative) 10/11/16 15:36 Urine Bilirubin Neg (Negative) 10/11/16 15:36 Urine Urobilinogen < 2.0 mg/dL (<2.0) 10/11/16 15:36 Ur Leukocyte Esterase Neg (Negative) 10/11/16 15:36 Urine WBC (Auto) 19.0 /HPF (0.0-6.0) H 10/11/16 15:36 Urine RBC (Auto) > 182.0 /HPF (0.0-6.0) 10/11/16 15:36 Urine Mucus 3+ /HPF 10/11/16 15:36 Blood Type AB POSITIVE 10/11/16 09:44 Antibody Screen TNR 10/11/16 09:44 SHAYNA Antibody Screen Negative 10/11/16 09:44
[2016-10-12] MEDS: BROVANA NEBU IH SCH (20:19)
[2016-10-12] MEDS: PULMICORT IH SCH (20:19)
[2016-10-12] MEDS: HABITROL TD SCH (21:20)
[2016-10-13] MEDS: NEURONTIN PO SCH ×3 (00:05→18:41)
[2016-10-13] MEDS: NACL 0.9% 1000 ML 1,000 ML IV SCH ×3 (00:06→19:42)
[2016-10-13 06:27] LABS: Hematocrit 40.6 % (35.5-45.6)
--- NOTE | 2016-10-13 07:32 | XRay Report ---
AP CHEST: HISTORY: Fever, tachycardia Moderate to large infiltrate has developed at the right lung base since 10/11/16 exam. Small right pleural effusion is likely present. The right upper lobe and left lung are generally clear. Heart size and pulmonary vascularity are within normal limits. IMPRESSION: Right lower lobe infiltrate.
[2016-10-13] MEDS: PULMICORT IH SCH ×2 (07:44→21:05)
[2016-10-13] MEDS: BROVANA NEBU IH SCH ×2 (07:44→21:05)
[2016-10-13] MEDS: TYLENOL PO PRN (08:38)
--- NOTE | 2016-10-13 08:51 | Admit Criteria Form ---
Admission Criteria Documentation: PULMONARY EMBOLISM Clinical Indications for Admission to Inpatient Care (Place 'X' for any and all applicable criteria): Admission is indicated by ANY ONE of the following 1,2,3,4,5 [ ]I. Onset of hypoxia [ ]II. Hemodynamic instability 5 [ ]III. Massive pulmonary embolism (eg, acute embolism causing sustained hypotension, pulselessness, or bradycardia)5 [ ]IV. Need for IV narcotics (eg, to treat dyspnea) [ ]V. Current use of home oxygen therapy [ ]. Active bleeding [ ]VII. Recent surgery [ ]VIII. Active peptic ulcer disease [ ]IX. Documented extensive thrombosis (eg, clot in vena cava or above iliofemoral bifurcation) [ ]X. Embolism while on anticoagulation [ ]XI. 6 [X]XII. Appropriate monitoring and therapy cannot be provided in home or outpatient setting. [ ]XIII. Systemic or catheter-directed thrombolysis 5,7 [ ]XIV. Catheter embolectomy and fragmentation 6 [ ]XV. Vena cava filter placement5 [ ]XVI. Severely diminished cardiopulmonary reserve (eg, cor pulmonale, pulmonary hypertension) [ ]XVII. Severe renal failure (eg, GFR less than 30 mL/min/1.73m2 (0.5 mL/sec/ 1.73m2)) [ ]XVIII.Right ventricular dysfunction (eg, by echocardiogram) 6,11 [ ]XIX. Positive cardiac biomarker (eg, troponin T or I > 0.1 ng/mL (mcg/L), highly sensitive troponin I assay greater than 0.014 ng/mL (mcg/L), BNP or NT proBNP > assay threshold)5,8,9 [ ]XX. Known clotting abn or def (eg, liver disease, antithrombin III, protein C, or protein S abnormality) [ ]XXI. History of heparin-induced thrombocytopenia [ ]XXII. Inpatient admission required rather than observation care (Also use Pulmonary Embolism: Observation Care guideline as appropriate) because of ANY ONE of the following: [ ] a) Significant autoimmune (thrombocytopenia) or coagulopathic reaction occurs in response to anticoagulation [ ] b) Respiratory symptoms (eg, tachypnea, dyspnea) that are severe or persistent [ ] c) Other condition, treatment, or monitoring requiring inpatient admission Extended stay beyond goal length of stay may be needed for 3,28 [ ]a) Hemorrhage or recent surgery [ ]b) Recurrent thromboembolism [ ]c) Persistent hypoxemia [ ]d) Heparin-induced thrombocytopenia The original [facility] [employer] content created by [facility] [employer] has been revised. The portions of the content which have been revised are identified through the use of italic text or in bold, and [facility] has neither reviewed nor approved the modified material. All other unmodified content is copyright [facility] [employer]. Please see references footnoted in the original [facility] [employer] edition 2016 Admission Criteria Met: Yes
[2016-10-13] MEDS: HABITROL TD SCH (11:30)
[2016-10-13] MEDS: ZESTRIL PO SCH (11:30)
[2016-10-13] MEDS: PEPCID PO SCH ×2 (11:30→23:13)
[2016-10-13] MEDS: THERAGRAN Tab PO SCH (11:30)
[2016-10-13] MEDS: PLAVIX PO SCH (11:30)
--- NOTE | 2016-10-13 11:36 | Progress Note ---
Assessment and Plan Acute pulmonary embolism. Status post thrombolysis, hemodynamically stable. Minimal tachycardia COPD. Currently controlled Sleep apnea. See notes from Dr. Morataya consult Recommendations Continue start anticoagulation Oxygen as needed to maintain oximetry over 92% Monitor for tachycardia Monitor hemoptysis output. At this point, not a contraindication for anticoagulation Critical care time was 25 minutes in [id number] evaluation and coordination of care. Subjective Date of service: 10/13/16 Principal diagnosis: pulmonary embolism, status post thrombolytics, COPD Interval history: He reports no complaints. Does say some residual hemoptysis but no active bleeding. No shortness of breath or chest pain. Objective Vital Signs - 12hr 10/12/16 10/13/16 10/13/16 23:43 00:00 00:44 Temperature 98.8 F Pulse Rate 100 H 99 H Pulse Rate [ Anterior Bilateral] Pulse Rate [ 106 H From Monitor] Respiratory 18 Rate Respiratory Rate [Anterior Bilateral] Blood Pressure 148/89 145/91 O2 Sat by Pulse 96 96 Oximetry 10/13/16 10/13/16 10/13/16 01:00 02:00 03:00 Temperature Pulse Rate 102 H 106 H 108 H Pulse Rate [ Anterior Bilateral] Pulse Rate [ From Monitor] Respiratory Rate Respiratory Rate [Anterior Bilateral] Blood Pressure 145/91 148/91 158/98 O2 Sat by Pulse 96 96 95 Oximetry 10/13/16 10/13/16 10/13/16 03:44 04:00 05:00 Temperature 99.2 F Pulse Rate 110 H 103 H Pulse Rate [ Anterior Bilateral] Pulse Rate [ 102 H From Monitor] Respiratory 18 Rate Respiratory Rate [Anterior Bilateral] Blood Pressure 156/96 157/103 O2 Sat by Pulse 97 96 Oximetry 10/13/16 10/13/16 10/13/16 06:00 07:00 07:41 Temperature Pulse Rate 107 H 109 H Pulse Rate [ Anterior Bilateral] Pulse Rate [ From Monitor] Respiratory Rate Respiratory Rate [Anterior Bilateral] Blood Pressure 157/103 157/103 O2 Sat by Pulse 96 95 97 Oximetry 10/13/16 10/13/16 10/13/16 07:45 08:00 08:03 Temperature 98.4 F Pulse Rate 108 H Pulse Rate [ 104 H 113 H Anterior Bilateral] Pulse Rate [ From Monitor] Respiratory Rate Respiratory 20 22 Rate [Anterior Bilateral] Blood Pressure 152/95 O2 Sat by Pulse 95 Oximetry 10/13/16 10/13/16 08:28 11:30 Temperature Pulse Rate 108 H Pulse Rate [ Anterior Bilateral] Pulse Rate [ 123 H From Monitor] Respiratory 25 H Rate Respiratory Rate [Anterior Bilateral] Blood Pressure 137/98 O2 Sat by Pulse 95 Oximetry Constitutional: no acute distress, alert Eyes: non-icteric ENT: oropharynx dry Neck: supple Effort: normal Ascultation: Bilateral: clear Percussion: Bilateral: not dull Tactile fremitus: Bilateral: normal Cardiovascular: regular rate and rhythm (sinus tachycardia) Gastrointestinal: normoactive bowel sounds, soft, non-tender Integumentary: normal Extremities: other (right AKA) Neurologic: normal mental status, non-focal exam, pupils equal and round, CN II- XII normal, motor strength normal and CBC and BMP: 10/13/16 05:25 10/11/16 09:34 ABG, PT/INR, D-dimer: PT/INR, D-dimer PT 15.2 Sec. (12.2-14.9) H 10/11/16 18:10 INR 1.21 (0.87-1.13) H 10/11/16 18:10 Abnormal lab findings: Abnormal Labs 10/11/16 10/11/16 10/11/16 16:17 18:10 18:10 Hct 46.6 H PT 15.2 H INR 1.21 H Heparin Anti-Xa Level < 0.10 L 10/12/16 10/13/16 19:30 07:12 Hct PT INR Heparin Anti-Xa Level 0.11 L 0.12 L
--- NOTE | 2016-10-13 11:42 | Progress Note ---
Assessment and Plan Assessment and plan: Patient is a 46-year-old man with history of COPD, DVT, hypertension and peripheral vascular disease status post right AKA who presents with chest pain and shortness of breath. He was found to have a large right main PE s/p EKOS thrombolysis done last night and catheter removed this a.m 10/12/2016. He continues to be tachycardic and had fever overnight as well. -Acute hypoxic respiratory failure due to PE: Treated with oxygen -Acute Cor pulmonale/acute diastolic heart failure with right heart strain due to PE status thrombolysis: Echocardiogram see below -Acute right PE: Treated with IV heparin -COPD: Pulmonology following -Sirs due to PE with leukocytosis, tachycardia, tachypnea -DVT prophylaxis: Heparin drip 2D Echo: Global left ventricle systolic function is normal, estimated EF is 50- 55%, mild concentric left ventricular hypertrophy, trace MR, poor acoustic windows. Abnormal left ventricular diastolic function is observed. Start Coumadin, ?newer anticoagulated ?transfer out icu if ok with vascular History Interval history: Patient seen and examined. Follow up on shortness of breath resolved. The chest pains also resolved. Overnight uneventful. No n/v or severe headaches. Imaging, old records, testing, labs, nursing notes reviewed. Hospitalist Physical - Physical exam Narrative exam: GEN: NAD, AWAKE, ALERT, ORIENTATED x 3 HEENT: NCAT, PERRL, EOMI, OP CLEAR NECK: SUPPLE, NO THYROMEGALY, NO JVD, NO LAD CVS: Regular tachycardia, NORMAL S1S2 LUNGS/CHEST: Fine inspiratory crackles bilaterally improved, NORMAL CHEST EXPANSION B, GOOD AIR ENTRY B ABD: SOFT, NTND, GBS, NO REBOUND OR GUARDING EXT/SKIN: NO SIGNIFICANT EDEMA OR RASH MSK: Right AKA NEURO: CN 2-12 GROSSLY INTACT, NO FOCAL DEFICITS PSY: CALM - Constitutional Vitals: Temp Pulse Resp BP Pulse Ox 98.4 F 108 H 25 H 137/98 95 10/13/16 08:00 10/13/16 11:30 10/13/16 08:28 10/13/16 11:30 10/13/16 08:28 General appearance: Absent: severe distress Results - Labs CBC & Chem 7: 10/13/16 05:25 10/11/16 09:34 Labs: Laboratory Last Values WBC 17.3 K/mm3 (4.5-11.0) H 10/11/16 09:34 RBC 5.47 M/mm3 (3.65-5.03) H 10/11/16 09:34 Hgb 13.0 gm/dl (11.8-15.2) 10/13/16 05:25 Hct 40.6 % (35.5-45.6) D 10/13/16 05:25 MCV 89 fl (84-94) 10/11/16 09:34 MCH 30 pg (28-32) 10/11/16 09:34 MCHC 33 % (32-34) 10/11/16 09:34 RDW 17.0 % (13.2-15.2) H 10/11/16 09:34 Plt Count 222 K/mm3 (140-440) 10/13/16 05:25 Lymph % (Auto) 8.1 % (13.4-35.0) L 10/11/16 09:34 Mcduffie % (Auto) 11.7 % (0.0-7.3) H 10/11/16 09:34 Eos % (Auto) 0.1 % (0.0-4.3) 10/11/16 09:34 Baso % (Auto) 0.5 % (0.0-1.8) 10/11/16 09:34 Lymph # 1.4 K/mm3 (1.2-5.4) 10/11/16 09:34 Mcduffie # 2.0 K/mm3 (0.0-0.8) H 10/11/16 09:34 Eos # 0.0 K/mm3 (0.0-0.4) 10/11/16 09:34 Baso # 0.1 K/mm3 (0.0-0.1) 10/11/16 09:34 Seg Neutrophils % 79.6 % (40.0-70.0) H 10/11/16 09:34 Seg Neutrophils # 13.7 K/mm3 (1.8-7.7) H 10/11/16 09:34 PT 15.2 Sec. (12.2-14.9) H 10/11/16 18:10 INR 1.21 (0.87-1.13) H 10/11/16 18:10 APTT 33.4 Sec. (24.2-36.6) 10/11/16 18:10 Heparin Anti-Xa Level 0.12 U.I./ml (0.3-0.7) L 10/13/16 07:12 Sodium 136 mmol/L (137-145) L 10/11/16 09:34 Potassium 3.8 mmol/L (3.6-5.0) 10/11/16 09:34 Chloride 97.1 mmol/L (98-107) L 10/11/16 09:34 Carbon Dioxide 22 mmol/L (22-30) 10/11/16 09:34 Anion Gap 21 mmol/L 10/11/16 09:34 BUN 14 mg/dL (9-20) 10/11/16 09:34 Creatinine 0.7 mg/dL (0.8-1.5) L 10/11/16 09:34 Estimated GFR > 60 ml/min 10/11/16 09:34 BUN/Creatinine Ratio 20.00 % 10/11/16 09:34 Glucose 129 mg/dL (75-100) H 10/11/16 09:34 Lactic Acid 1.20 mmol/L (0.7-2.0) 10/11/16 09:41 Calcium 9.5 mg/dL (8.4-10.2) 10/11/16 09:34 Total Bilirubin 0.60 mg/dL (0.1-1.2) 10/11/16 09:41 Direct Bilirubin 0.2 mg/dL (0-0.2) 10/11/16 09:41 Indirect Bilirubin 0.4 mg/dL 10/11/16 09:41 AST 21 units/L (5-40) 10/11/16 09:41 ALT 19 units/L (7-56) 10/11/16 09:41 Alkaline Phosphatase 98 units/L (35-129) 10/11/16 09:41 Total Creatine Kinase 36 units/L (55-170) L 10/11/16 09:34 CK-MB (CK-2) Rel Index 2.7 (0-4) 10/11/16 09:34 Troponin T < 0.010 ng/mL (0.00-0.029) 10/11/16 09:34 NT-Pro-B Natriuret Pep 934.9 pg/mL (0-450) H 10/11/16 09:41 Total Protein 8.1 g/dL (6.3-8.2) 10/11/16 09:41 Albumin 3.9 g/dL (3.9-5) 10/11/16 09:41 Albumin/Globulin Ratio 0.9 % 10/11/16 09:41 Urine Color [place] (Yellow) 10/11/16 15:36 Urine Turbidity Slightly-cloudy (Clear) 10/11/16 15:36 Urine pH 5.0 (5.0-7.0) 10/11/16 15:36 Urine Protein 100 mg/dl mg/dL (Negative) 10/11/16 15:36 Urine Glucose (UA) 50 mg/dL (Negative) 10/11/16 15:36 Urine Ketones Neg mg/dL (Negative) 10/11/16 15:36 Urine Blood Lg (Negative) 10/11/16 15:36 Urine Nitrite Neg (Negative) 10/11/16 15:36 Urine Bilirubin Neg (Negative) 10/11/16 15:36 Urine Urobilinogen < 2.0 mg/dL (<2.0) 10/11/16 15:36 Ur Leukocyte Esterase Neg (Negative) 10/11/16 15:36 Urine WBC (Auto) 19.0 /HPF (0.0-6.0) H 10/11/16 15:36 Urine RBC (Auto) > 182.0 /HPF (0.0-6.0) 10/11/16 15:36 Urine Mucus 3+ /HPF 10/11/16 15:36 Blood Type AB POSITIVE 10/11/16 09:44 Antibody Screen TNR 10/11/16 09:44 SHAYNA Antibody Screen Negative 10/11/16 09:44
[2016-10-13] MEDS: HEPARIN/ 0.45% NACL-25,000 UNIT/500 ML 25,000 UNIT/500 ML BAG IV SCH (15:20)
[2016-10-13] MEDS ORDERED: COUMADIN PO SCH (17:00)
[2016-10-14] MEDS: HEPARIN/ 0.45% NACL-25,000 UNIT/500 ML 25,000 UNIT/500 ML BAG IV SCH ×3 (01:16→22:41)
[2016-10-14] MEDS: NEURONTIN PO SCH ×3 (01:16→18:28)
[2016-10-14 05:26] LABS: INR 1.09 (0.87-1.13)
[2016-10-14 05:42] LABS: Hematocrit 39.5 % (35.5-45.6); Hemoglobin 12.9 gm/dl (11.8-15.2); Red Blood Count 4.45 M/mm3 (3.65-5.03); White Blood Count 14.4 K/mm3 (4.5-11.0)
[2016-10-14 05:43] LABS: Mean Platelet Volume 9.2 fl (6-12); Red Cell Distribution Width 16.5 % (13.2-15.2)
[2016-10-14] MEDS: BROVANA NEBU IH SCH ×2 (08:26→19:44)
[2016-10-14] MEDS: PULMICORT IH SCH ×2 (08:26→19:45)
[2016-10-14 08:41] LABS: Anion Gap 14 mmol/L; Blood Urea Nitrogen 17 mg/dL (9-20); Calcium 8.6 mg/dL (8.4-10.2); Carbon Dioxide 27 mmol/L (22-30); Chloride 101.3 mmol/L (98-107); Glucose 135 mg/dL (75-100); Potassium 3.7 mmol/L (3.6-5.0); Sodium 139 mmol/L (137-145)
--- NOTE | 2016-10-14 09:05 | Progress Note ---
Assessment and Plan Patient is a 46-year-old man with history of COPD, DVT, hypertension and peripheral vascular disease status post right AKA who presents with chest pain and shortness of breath. He was found to have a large right main PE s/p EKOS thrombolysis done last night and catheter removed this a.m 10/12/2016. Acute hypoxic respiratory failure due to PE: - Treated with oxygen - on heparin drip, placed on PO coumadin Acute Cor pulmonale/acute diastolic heart failure with right heart strain - due to PE status thrombolysis: - Echocardiogram showed Global left ventricle systolic function is normal, estimated EF is 50-55%, mild concentric left ventricular hypertrophy Acute right PE: - Treated with IV heparin, transitioning to po coumadin COPD: Pulmonology following Sirs due to PE with leukocytosis, tachycardia, tachypnea DVT prophylaxis: Heparin drip Subjective Date of service: 10/14/16 Principal diagnosis: pulmonary embolism, status post thrombolytics, COPD Interval history: Patient seen and examined. Follow up on shortness of breath resolved. The chest pains also resolved. Overnight uneventful. No n/v or severe headaches. transfer to floor today. discussed with at bedside. Objective - Exam Narrative Exam: GEN: NAD, AWAKE, ALERT, ORIENTATED x 3 HEENT: NCAT, PERRL, EOMI, OP CLEAR NECK: SUPPLE, NO THYROMEGALY, NO JVD, NO LAD CVS: Regular tachycardia, NORMAL S1S2 LUNGS/CHEST: Fine inspiratory crackles bilaterally improved, NORMAL CHEST EXPANSION B, GOOD AIR ENTRY B ABD: SOFT, NTND, GBS, NO REBOUND OR GUARDING EXT/SKIN: NO SIGNIFICANT EDEMA OR RASH MSK: Right AKA NEURO: CN 2-12 GROSSLY INTACT, NO FOCAL DEFICITS PSY: CALM - Constitutional Vitals: Vital Signs - 12hr 10/13/16 10/13/16 10/13/16 21:25 22:00 22:40 Temperature Pulse Rate 108 H Pulse Rate [ 110 H Anterior Bilateral] Pulse Rate [ From Monitor] Respiratory Rate Respiratory 18 Rate [Anterior Bilateral] Blood Pressure 148/93 O2 Sat by Pulse 94 95 Oximetry 10/13/16 10/13/16 10/14/16 23:00 23:12 00:00 Temperature 98.6 F Pulse Rate 111 H 108 H 107 H Pulse Rate [ Anterior Bilateral] Pulse Rate [ From Monitor] Respiratory Rate Respiratory Rate [Anterior Bilateral] Blood Pressure 156/91 156/91 164/99 O2 Sat by Pulse 95 95 98 Oximetry 10/14/16 10/14/16 10/14/16 01:00 02:00 02:34 Temperature Pulse Rate 111 H 108 H Pulse Rate [ Anterior Bilateral] Pulse Rate [ 107 H 102 H From Monitor] Respiratory 20 21 Rate Respiratory Rate [Anterior Bilateral] Blood Pressure 171/107 158/102 O2 Sat by Pulse 91 95 98 Oximetry 10/14/16 10/14/16 10/14/16 03:00 04:00 05:00 Temperature Pulse Rate 104 H 109 H 85 Pulse Rate [ Anterior Bilateral] Pulse Rate [ From Monitor] Respiratory Rate Respiratory Rate [Anterior Bilateral] Blood Pressure 166/103 160/95 164/107 O2 Sat by Pulse 93 95 97 Oximetry 10/14/16 10/14/16 10/14/16 06:00 07:00 08:00 Temperature 98.6 F 97.7 F Pulse Rate 108 H 91 H Pulse Rate [ Anterior Bilateral] Pulse Rate [ From Monitor] Respiratory Rate Respiratory Rate [Anterior Bilateral] Blood Pressure 167/102 165/103 O2 Sat by Pulse 91 93 Oximetry 10/14/16 10/14/16 08:27 08:45 Temperature Pulse Rate Pulse Rate [ 108 H 107 H Anterior Bilateral] Pulse Rate [ From Monitor] Respiratory Rate Respiratory 22 20 Rate [Anterior Bilateral] Blood Pressure O2 Sat by Pulse Oximetry - Labs CBC & Chem 7: 10/14/16 04:13 10/14/16 07:33 Labs: Abnormal lab results 10/13/16 10/14/16 10/14/16 Range/Units 17:46 01:54 04:13 WBC 14.4 H (4.5-11.0) K/mm3 RDW 16.5 H (13.2-15.2) % Heparin Anti-Xa Level 0.10 L 0.13 L (0.3-0.7) U.I./ml Creatinine (0.8-1.5) mg/dL Glucose (75-100) mg/dL 10/14/16 Range/Units 07:33 WBC (4.5-11.0) K/mm3 RDW (13.2-15.2) % Heparin Anti-Xa Level (0.3-0.7) U.I./ml Creatinine 0.5 L (0.8-1.5) mg/dL Glucose 135 H (75-100) mg/dL
[2016-10-14] MEDS: TYLENOL PO PRN (09:36)
[2016-10-14] MEDS: ZESTRIL PO SCH (09:37)
[2016-10-14] MEDS: COREG PO SCH ×2 (09:37→21:47)
[2016-10-14] MEDS: PLAVIX PO SCH (09:37)
[2016-10-14] MEDS: THERAGRAN Tab PO SCH (09:37)
[2016-10-14] MEDS: PEPCID PO SCH ×2 (09:38→21:47)
[2016-10-14] MEDS: HABITROL TD SCH (09:38)
--- NOTE | 2016-10-14 10:52 | Progress Note ---
Assessment and Plan Acute pulmonary embolism. Status post thrombolysis, hemodynamically stable. Minimal tachycardia COPD. Currently controlled Sleep apnea. See notes from Dr. Morataya consult Recommendations Continue anticoagulation, can initiate switched to by mouth drug Oxygen as needed to maintain oximetry over 92% Monitor for tachycardia If he continues to do well during the daytime to transfer outside of the ICU. Subjective Date of service: 10/14/16 Principal diagnosis: pulmonary embolism, status post thrombolytics, COPD Interval history: Possible discharge. No respiratory complaints at this time. Objective Vital Signs - 12hr 10/13/16 10/13/16 10/14/16 23:00 23:12 00:00 Temperature 98.6 F Pulse Rate 111 H 108 H 107 H Pulse Rate [ Anterior Bilateral] Pulse Rate [ From Monitor] Respiratory Rate Respiratory Rate [Anterior Bilateral] Blood Pressure 156/91 156/91 164/99 O2 Sat by Pulse 95 95 98 Oximetry 10/14/16 10/14/16 10/14/16 01:00 02:00 02:34 Temperature Pulse Rate 111 H 108 H Pulse Rate [ Anterior Bilateral] Pulse Rate [ 107 H 102 H From Monitor] Respiratory 20 21 Rate Respiratory Rate [Anterior Bilateral] Blood Pressure 171/107 158/102 O2 Sat by Pulse 91 95 98 Oximetry 10/14/16 10/14/16 10/14/16 03:00 04:00 05:00 Temperature Pulse Rate 104 H 109 H 85 Pulse Rate [ Anterior Bilateral] Pulse Rate [ From Monitor] Respiratory Rate Respiratory Rate [Anterior Bilateral] Blood Pressure 166/103 160/95 164/107 O2 Sat by Pulse 93 95 97 Oximetry 10/14/16 10/14/16 10/14/16 06:00 07:00 08:00 Temperature 98.6 F 97.7 F Pulse Rate 108 H 91 H 107 H Pulse Rate [ Anterior Bilateral] Pulse Rate [ From Monitor] Respiratory Rate Respiratory Rate [Anterior Bilateral] Blood Pressure 167/102 165/103 179/109 O2 Sat by Pulse 91 93 92 Oximetry 10/14/16 10/14/16 10/14/16 08:27 08:45 09:00 Temperature Pulse Rate 117 H Pulse Rate [ 108 H 107 H Anterior Bilateral] Pulse Rate [ From Monitor] Respiratory Rate Respiratory 22 20 Rate [Anterior Bilateral] Blood Pressure 181/106 O2 Sat by Pulse 92 Oximetry 10/14/16 10/14/16 09:36 09:37 Temperature Pulse Rate 114 H Pulse Rate [ Anterior Bilateral] Pulse Rate [ From Monitor] Respiratory 20 Rate Respiratory Rate [Anterior Bilateral] Blood Pressure 174/98 O2 Sat by Pulse Oximetry Constitutional: no acute distress, alert Eyes: non-icteric ENT: oropharynx dry Neck: supple Effort: normal Ascultation: Bilateral: clear, wheezes Percussion: Bilateral: not dull Tactile fremitus: Bilateral: normal Cardiovascular: regular rate and rhythm (sinus tachycardia) Gastrointestinal: normoactive bowel sounds, soft, non-tender Integumentary: normal Extremities: other (right AKA) Neurologic: normal mental status, non-focal exam, pupils equal and round, CN II- XII normal, motor strength normal and CBC and BMP: 10/14/16 04:13 10/14/16 07:33 ABG, PT/INR, D-dimer: PT/INR, D-dimer PT 14.0 Sec. (12.2-14.9) 10/14/16 04:13 INR 1.09 (0.87-1.13) 10/14/16 04:13 Abnormal lab findings: Abnormal Labs 10/11/16 10/11/16 10/11/16 16:17 18:10 18:10 WBC Hct 46.6 H RDW PT 15.2 H INR 1.21 H Heparin Anti-Xa Level < 0.10 L Creatinine Glucose 10/12/16 10/13/16 10/13/16 19:30 07:12 17:46 WBC Hct RDW PT INR Heparin Anti-Xa Level 0.11 L 0.12 L 0.10 L Creatinine Glucose 10/14/16 10/14/16 10/14/16 01:54 04:13 07:33 WBC 14.4 H Hct RDW 16.5 H PT INR Heparin Anti-Xa Level 0.13 L Creatinine 0.5 L Glucose 135 H
[2016-10-14] MEDS: COUMADIN PO SCH (18:28)
[2016-10-14] MEDS ORDERED: NORMODYNE IV ONE (19:00)
[2016-10-14] MEDS: NORCO 5/325 PO PRN (19:29)
[2016-10-14] MEDS ORDERED: HEPARIN 10,000 UNITS/10 ML ONE (19:59)
[2016-10-14] MEDS ORDERED: HEPARIN 10,000 UNITS/10 ML IV ONE (20:02)
[2016-10-15] MEDS ORDERED: WATER FOR INJ (PF) 10 ML ONE (01:00)
[2016-10-15] MEDS: NEURONTIN PO SCH ×2 (01:06→08:56)
[2016-10-15] MEDS: APRESOLINE IV PRN ×2 (01:06→21:55)
[2016-10-15 04:30] LABS: Hematocrit 37.5 % (35.5-45.6); Hemoglobin 12.4 gm/dl (11.8-15.2)
[2016-10-15 05:56] LABS: INR 1.12 (0.87-1.13)
[2016-10-15] MEDS: BROVANA NEBU IH SCH ×2 (07:25→19:33)
[2016-10-15] MEDS: PULMICORT IH SCH ×2 (07:25→19:33)
[2016-10-15] MEDS: HABITROL TD SCH ×2 (08:50→10:00)
[2016-10-15] MEDS: ZESTRIL PO SCH ×2 (08:50→10:00)
[2016-10-15] MEDS: PLAVIX PO SCH ×2 (08:51→10:00)
[2016-10-15] MEDS: THERAGRAN Tab PO SCH ×2 (08:51→10:00)
[2016-10-15] MEDS: HEPARIN/ 0.45% NACL-25,000 UNIT/500 ML 25,000 UNIT/500 ML BAG IV SCH ×2 (08:51→18:07)
[2016-10-15] MEDS: PEPCID PO SCH ×3 (08:51→21:55)
[2016-10-15] MEDS: COREG PO SCH ×3 (08:51→21:55)
--- NOTE | 2016-10-15 12:42 | Progress Note ---
Assessment and Plan Acute pulmonary embolism. Complete anticoagulation COPD. Currently controlled Sleep apnea. See notes from Dr. Morataya consult Recommendations Continue anticoagulation Check oxygen prior to discharge Monitor for tachycardia Karin seeing at the pulmonary clinic for outpatient follow-up. Discussed with the patient Sign off Subjective Date of service: 10/15/16 Principal diagnosis: pulmonary embolism, status post thrombolytics, COPD Interval history: No respiratory complaints at this time. He was felt to walk with assistance this morning without problems. No bleeding reported. Objective Vital Signs - 12hr 10/15/16 10/15/16 10/15/16 01:06 05:25 07:26 Temperature 98.0 F Pulse Rate Pulse Rate [ 90 Anterior Bilateral] Pulse Rate [ 101 H From Monitor] Pulse Rate [ Right Radial] Respiratory 20 Rate Respiratory 18 Rate [Anterior Bilateral] Blood Pressure 173/106 Blood Pressure 182/102 [Left Arm] O2 Sat by Pulse 94 Oximetry 10/15/16 10/15/16 10/15/16 07:27 07:34 08:00 Temperature 97.7 F Pulse Rate Pulse Rate [ 94 H Anterior Bilateral] Pulse Rate [ From Monitor] Pulse Rate [ 100 H Right Radial] Respiratory 18 Rate Respiratory 18 Rate [Anterior Bilateral] Blood Pressure Blood Pressure 164/95 [Left Arm] O2 Sat by Pulse 95 94 Oximetry 10/15/16 08:51 Temperature Pulse Rate 105 H Pulse Rate [ Anterior Bilateral] Pulse Rate [ From Monitor] Pulse Rate [ Right Radial] Respiratory Rate Respiratory Rate [Anterior Bilateral] Blood Pressure Blood Pressure [Left Arm] O2 Sat by Pulse Oximetry Constitutional: no acute distress, alert Eyes: non-icteric ENT: oropharynx dry Neck: supple Effort: normal Ascultation: Bilateral: clear, wheezes Percussion: Bilateral: not dull Tactile fremitus: Bilateral: normal Cardiovascular: regular rate and rhythm (sinus tachycardia) Gastrointestinal: normoactive bowel sounds, soft, non-tender Integumentary: normal Extremities: other (right AKA) Neurologic: normal mental status, non-focal exam, pupils equal and round, CN II- XII normal, motor strength normal and CBC and BMP: 10/15/16 03:08 10/14/16 07:33 ABG, PT/INR, D-dimer: PT/INR, D-dimer PT 14.3 Sec. (12.2-14.9) 10/15/16 03:08 INR 1.12 (0.87-1.13) 10/15/16 03:08 Abnormal lab findings: Abnormal Labs 10/11/16 10/11/16 10/11/16 16:17 18:10 18:10 WBC Hct 46.6 H RDW PT 15.2 H INR 1.21 H Heparin Anti-Xa Level < 0.10 L Creatinine Glucose 10/12/16 10/13/16 10/13/16 19:30 07:12 17:46 WBC Hct RDW PT INR Heparin Anti-Xa Level 0.11 L 0.12 L 0.10 L Creatinine Glucose 10/14/16 10/14/16 10/14/16 01:54 04:13 07:33 WBC 14.4 H Hct RDW 16.5 H PT INR Heparin Anti-Xa Level 0.13 L Creatinine 0.5 L Glucose 135 H 10/14/16 10/14/16 10:26 19:08 WBC Hct RDW PT INR Heparin Anti-Xa Level 0.27 L < 0.10 L Creatinine Glucose
--- NOTE | 2016-10-15 14:08 | Progress Note ---
Assessment and Plan Patient is a 46-year-old man with history of COPD, DVT, hypertension and peripheral vascular disease status post right AKA who presents with chest pain and shortness of breath. He was found to have a large right main PE s/p EKOS thrombolysis done last night and catheter removed this a.m 10/12/2016. Acute hypoxic respiratory failure due to PE: - Treated with oxygen - on heparin drip, placed on PO coumadin Acute Cor pulmonale/acute diastolic heart failure with right heart strain - due to PE status thrombolysis: - Echocardiogram showed Global left ventricle systolic function is normal, estimated EF is 50-55%, mild concentric left ventricular hypertrophy Acute right PE: - Treated with IV heparin, transitioning to po coumadin - follow INR COPD: Pulmonology following SIRS due to PE with leukocytosis, tachycardia, tachypnea, improved DVT prophylaxis: Heparin drip Subjective Date of service: 10/15/16 Principal diagnosis: pulmonary embolism, status post thrombolytics, COPD Interval history: Patient seen and examined. Follow up on shortness of breath resolved. The chest pains also resolved. Overnight uneventful. No n/v or severe headaches. discussed with at bedside. Objective - Exam Narrative Exam: GEN: NAD, AWAKE, ALERT, ORIENTATED x 3 HEENT: NCAT, PERRL, EOMI, OP CLEAR NECK: SUPPLE, NO THYROMEGALY, NO JVD, NO LAD CVS: Regular tachycardia, NORMAL S1S2 LUNGS/CHEST: Fine inspiratory crackles bilaterally improved, NORMAL CHEST EXPANSION B, GOOD AIR ENTRY B ABD: SOFT, NTND, GBS, NO REBOUND OR GUARDING EXT/SKIN: NO SIGNIFICANT EDEMA OR RASH MSK: Right AKA NEURO: CN 2-12 GROSSLY INTACT, NO FOCAL DEFICITS PSY: CALM - Constitutional Vitals: Vital Signs - 12hr 10/15/16 10/15/16 10/15/16 05:25 07:26 07:27 Temperature 98.0 F Pulse Rate Pulse Rate [ 90 Anterior Bilateral] Pulse Rate [ 101 H From Monitor] Pulse Rate [ Right Radial] Respiratory 20 Rate Respiratory 18 Rate [Anterior Bilateral] Blood Pressure 182/102 [Left Arm] O2 Sat by Pulse 94 95 Oximetry 10/15/16 10/15/16 10/15/16 07:34 08:00 08:51 Temperature 97.7 F Pulse Rate 105 H Pulse Rate [ 94 H Anterior Bilateral] Pulse Rate [ From Monitor] Pulse Rate [ 100 H Right Radial] Respiratory 18 Rate Respiratory 18 Rate [Anterior Bilateral] Blood Pressure 164/95 [Left Arm] O2 Sat by Pulse 94 Oximetry - Labs CBC & Chem 7: 10/15/16 03:08 10/14/16 07:33 Labs: Abnormal lab results 10/14/16 Range/Units 19:08 Heparin Anti-Xa Level < 0.10 L (0.3-0.7) U.I./ml
[2016-10-15] MEDS: COUMADIN PO SCH (18:07)
[2016-10-16] MEDS: HEPARIN/ 0.45% NACL-25,000 UNIT/500 ML 25,000 UNIT/500 ML BAG IV SCH (02:30)
[2016-10-16] MEDS: NEURONTIN PO SCH ×3 (03:00→13:50)
[2016-10-16] MEDS: APRESOLINE IV PRN (06:53)
[2016-10-16 07:22] LABS: INR 2.37 (0.87-1.13)
[2016-10-16] MEDS: PULMICORT IH SCH ×2 (10:36→19:48)
[2016-10-16] MEDS: BROVANA NEBU IH SCH ×2 (10:36→19:48)
[2016-10-16] MEDS: PLAVIX PO SCH (10:42)
[2016-10-16] MEDS: THERAGRAN Tab PO SCH (10:42)
[2016-10-16] MEDS: PEPCID PO SCH ×2 (10:43→22:00)
[2016-10-16] MEDS: ZESTRIL PO SCH (10:43)
[2016-10-16] MEDS: COREG PO SCH ×2 (10:44→22:00)
[2016-10-16 10:45] LABS: INR 2.11 (0.87-1.13)
[2016-10-16] MEDS: HABITROL TD SCH (10:45)
--- NOTE | 2016-10-16 16:20 | Progress Note ---
Assessment and Plan Patient is a 46-year-old man with history of COPD, DVT, hypertension and peripheral vascular disease status post right AKA who presents with chest pain and shortness of breath. He was found to have a large right main PE s/p EKOS thrombolysis done and catheter removed on 10/12/2016. Acute hypoxic respiratory failure due to PE: - Treated with oxygen - on heparin drip, placed on PO coumadin Acute Cor pulmonale/acute diastolic heart failure with right heart strain - due to PE status thrombolysis: - Echocardiogram showed Global left ventricle systolic function is normal, estimated EF is 50-55%, mild concentric left ventricular hypertrophy Acute right PE: - Treated with IV heparin, transitioning to po coumadin - INR therapeutic today, will d/c heparin COPD: Pulmonology following SIRS due to PE with leukocytosis, tachycardia, tachypnea, improved DVT prophylaxis: on coumadin disposition: home with , if INR still therapeutic tomorrow. Subjective Date of service: 10/16/16 Principal diagnosis: pulmonary embolism, status post thrombolytics, COPD Interval history: Patient seen and examined. Follow up on shortness of breath resolved. The chest pains also resolved. Overnight uneventful. No n/v or severe headaches. discussed with at bedside. Objective - Exam Narrative Exam: GEN: NAD, AWAKE, ALERT, ORIENTATED x 3 HEENT: NCAT, PERRL, EOMI, OP CLEAR NECK: SUPPLE, NO THYROMEGALY, NO JVD, NO LAD CVS: Regular tachycardia, NORMAL S1S2 LUNGS/CHEST: Fine inspiratory crackles bilaterally improved, NORMAL CHEST EXPANSION B, GOOD AIR ENTRY B ABD: SOFT, NTND, GBS, NO REBOUND OR GUARDING EXT/SKIN: NO SIGNIFICANT EDEMA OR RASH MSK: Right AKA NEURO: CN 2-12 GROSSLY INTACT, NO FOCAL DEFICITS PSY: CALM - Constitutional Vitals: Vital Signs - 12hr 10/16/16 10/16/16 10/16/16 05:02 08:25 10:43 Temperature 97.6 F 97.5 F L Pulse Rate 118 H Pulse Rate [ 79 From Monitor] Pulse Rate [ 118 H Left Radial] Respiratory 18 20 Rate Blood Pressure 146/84 Blood Pressure 176/98 146/84 [Left Arm] O2 Sat by Pulse 93 Oximetry 10/16/16 10:44 Temperature Pulse Rate 118 H Pulse Rate [ From Monitor] Pulse Rate [ Left Radial] Respiratory Rate Blood Pressure 146/84 Blood Pressure [Left Arm] O2 Sat by Pulse Oximetry - Labs CBC & Chem 7: 10/17/16 06:36 10/14/16 07:33 Labs: Abnormal lab results 10/16/16 10/16/16 10/16/16 Range/Units 06:05 06:05 10:19 PT 26.0 H 23.7 H (12.2-14.9) Sec. INR 2.37 H 2.11 H (0.87-1.13) Heparin Anti-Xa Level 0.97 H (0.3-0.7) U.I./ml
[2016-10-16] MEDS ORDERED: COUMADIN PO SCH (17:00)
[2016-10-17] MEDS: NORCO 5/325 PO PRN (01:12)
[2016-10-17] MEDS: NEURONTIN PO SCH (01:15)
[2016-10-17] MEDS: APRESOLINE IV PRN (06:37)
[2016-10-17] MEDS: PULMICORT IH SCH (07:25)
[2016-10-17] MEDS: BROVANA NEBU IH SCH (07:25)
[2016-10-17 07:37] LABS: Hematocrit 39.6 % (35.5-45.6); Hemoglobin 13.1 gm/dl (11.8-15.2)
[2016-10-17 08:00] LABS: INR 2.26 (0.87-1.13)
--- NOTE | 2016-10-17 08:34 | Discharge Summary ---
Providers - Providers Date of Admission: 10/11/16 15:45 Date of discharge: 10/17/16 Attending physician: TOSHA BORJA 10/11/16 16:29 Consult to Interventional Radiology [CONS] Routine Consulting Provider: IVETT BASHIR Reason For Exam: Large R pulmnary embolus with resp failure Place consult to:: IR Notified:: yes Was contact made?: Yes 10/11/16 19:10 Consult to Physician [CONS] Routine Consulting Provider: EVETTE VANN Reason For Exam: PE, resp failure Place consult to:: pulmonaary Notified:: yes Phone number called:: [phone] Was contact made?: Yes If yes, spoke with:: Dr Vann Time called:: 07:05 Primary care physician: [employer] Hospitalization Condition: Stable Hospital course: Patient is a 46-year-old man with history of COPD, DVT, hypertension and peripheral vascular disease status post right AKA who presents with chest pain and shortness of breath. He was found to have a large right main PE on CTA chest s/p EKOS thrombolysis done by vascular and catheter was removed on 2016. Discharge diagnosis and management: Acute hypoxic respiratory failure due to PE: - Treated with oxygen - S/p heparin drip, placed on PO coumadin Acute Cor pulmonale/acute diastolic heart failure with right heart strain - due to PE status thrombolysis: - Echocardiogram showed Global left ventricle systolic function is normal, estimated EF is 50-55%, mild concentric left ventricular hypertrophy Acute right PE: - Treated with IV heparin, transitioned to po coumadin - INR was therapeutic on discharge, d/kelly heparin drip COPD: Pulmonology was consulted SIRS due to PE with leukocytosis, tachycardia, tachypnea, improved S/p Rt BKA, supportive care HTN, uncontrolled - increased the dose of coreg and lisinopril - pt will f/u with his PCP next week Disposition: DC/TX- HOME [facility] Time spent for discharge: 35 minutes Core Measure Documentation - Palliative Care Palliative Care/ Comfort Measures: Not Applicable - Core Measures Any of the following diagnoses?: DVT/PE - VTE Discharge Requirements Deep Vein Thrombosis/Pulmonary Embolism Present on Admission: No Has pt received <5 days of overlap therapy or INR<2.0: Yes Anticoagulant overlap therapy prescribed at discharge: Yes Exam - Physical Exam Narrative exam: GEN: NAD, AWAKE, ALERT, ORIENTATED x 3 HEENT: NCAT, PERRL, EOMI, OP CLEAR NECK: SUPPLE, NO THYROMEGALY, NO JVD, NO LAD CVS: Regular tachycardia, NORMAL S1S2 LUNGS/CHEST: Fine inspiratory crackles bilaterally improved, NORMAL CHEST EXPANSION B, GOOD AIR ENTRY B ABD: SOFT, NTND, GBS, NO REBOUND OR GUARDING EXT/SKIN: NO SIGNIFICANT EDEMA OR RASH MSK: Right AKA NEURO: CN 2-12 GROSSLY INTACT, NO FOCAL DEFICITS PSY: CALM - Constitutional Vitals: Temp Pulse Resp BP Pulse Ox 98.6 F 70 20 173/101 95 10/17/16 04:20 10/17/16 04:20 10/17/16 04:20 10/17/16 04:20 10/17/16 04:20 Plan Activity: fall precautions Weight Bearing Status: Non-Weight Bearing Diet: low cholesterol, low salt Follow up with: [facility] [Provider Group] - 7 Days PRIMARY CARE, [Primary Care Provider] - 3-5 Days Forms: Warfarin Discharge Instruction Prescriptions: Carvedilol [Coreg] 6.25 mg PO BID #60 tablet HYDROcodone/APAP 5-325 [[place] 5-325 mg TAB] 1 each PO Q4H PRN #30 tablet PRN Reason: Pain, Moderate (4-6) Lisinopril [Zestril TAB] 20 mg PO DAILY #30 tablet Warfarin [Coumadin] 2 mg PO DAILY@1700 #10 tablet
[2016-10-17] MEDS: COREG PO SCH (09:05)
[2016-10-17] MEDS: HABITROL TD SCH (09:05)
[2016-10-17] MEDS: PEPCID PO SCH (09:05)
[2016-10-17 09:06] VITALS: BP 167/99
[2016-10-17] MEDS: ZESTRIL PO SCH (09:06)
[2016-10-17] MEDS: PLAVIX PO SCH (09:06)
[2016-10-17] MEDS: THERAGRAN Tab PO SCH (09:06)
== END 2016-10-17 11:30 | disposition home health service (06) | DRG 175 ==
LOC: ED 09:00 → 4A 15:45 → CC1 17:50 → 4A 10-14 19:06
PROVIDERS: ADMIT Internal Medicine; ATTEND Internal Medicine
PROC: 3E06317 Introduction of Other Thrombolytic into Central Artery, Percutaneous Approach (ICD-10-PCS; principal; 2016-10-11)
PROC: 02HQ33Z Insertion of Infusion Device into Right Pulmonary Artery, Percutaneous Approach (ICD-10-PCS; principal; 2016-10-11)
PROC: B31S1ZZ Fluoroscopy of Right Pulmonary Artery using Low Osmolar Contrast (ICD-10-PCS; principal; 2016-10-11)
DX: I26.09 Other pulmonary embolism with acute cor pulmonale (principal); I50.31 Acute diastolic (congestive) heart failure; J96.01 Acute respiratory failure with hypoxia; N17.9 Acute kidney failure, unspecified; R65.10 Systemic inflammatory response syndrome (SIRS) of non-infectious origin without acute organ dysfunction; F17.200 Nicotine dependence, unspecified, uncomplicated; M19.90 Unspecified osteoarthritis, unspecified site; I73.9 Peripheral vascular disease, unspecified; J44.9 Chronic obstructive pulmonary disease, unspecified; G47.33 Obstructive sleep apnea (adult) (pediatric); I11.0 Hypertensive heart disease with heart failure; Z87.442 Personal history of urinary calculi; Z86.718 Personal history of other venous thrombosis and embolism; Z89.511 Acquired absence of right leg below knee; Z82.49 Family history of ischemic heart disease and other diseases of the circulatory system; Z89.611 Acquired absence of right leg above knee
CPT/HCPCS: 36415; 37211; 71010; 71275; 80048; 80074; 81001; 82140; 82550; 82553; 83880; 84484; 85014; 85018; 85025; 85027; 85049; 85520; 85610; 85730; 86850; 86900; 86901; 87040; 93005; 93010; 93306; 94640; 94760; C1751; C1757; C1894; J0360; J0690; J1644; J1940; J1956; J2250; J2270; J2405; J2930; J2997; J3010; J7030; J7040; Q9967